=== PATIENT | male | born 1950 | race Hispanic/Latino ===

== ENCOUNTER 2017-10-01 07:15 | Inpatient (IN) | payer BC, MEDICARE ==
--- NOTE | 2017-10-01 07:27 | ED PDOC ---
Arrival/HPI - General Chief Complaint: Shortness Of Breath Time Seen by Provider: 10/01/17 07:15 - History of Present Illness Narrative History of Present Illness (Text): 67 y/o M c PMHx ICD, diagnosed with DVT yesterday and started on warfarin p/w shortness of breath since this morning. States felt very short of breath walking up his stairs, called EMS. Patient denies fever, cough, chest pain , nausea, vomiting. Reports 40 pack year smoking history but no history of COPD or asthma. Reports daily drinker, denies ever getting withdrawal symptoms. PMD Elijah Family/Social History Family/Social History: No Known Family HX Allergies/Home Meds Allergies/Adverse Reactions: Allergies aspirin Allergy (Verified 10/01/17 07:20) PAIN ciprofloxacin [From Cipro] Allergy (Verified 10/01/17 07:20) RASH levofloxacin [From Levaquin] Allergy (Verified 10/01/17 07:20) RASH Penicillins Allergy (Verified 10/01/17 07:20) RASH Home Medications: Home Meds Medication Instructions Recorded Confirmed Carvedilol [Coreg] 6.25 mg PO BID 10/01/17 10/01/17 Gabapentin [Neurontin] 100 mg PO TID 10/01/17 10/01/17 Isosorbide Dinitrate [Isordil] 60 mg PO DAILY 10/01/17 10/01/17 amLODIPine [Norvasc] 10 mg PO DAILY 10/01/17 10/01/17 Review of Systems - Physician Review All systems were reviewed & negative as marked: Yes - Review of Systems Constitutional: absent: Fevers Cardiovascular: absent: Chest Pain Physical Exam - Physical Exam Narrative Physical Exam (Text): Gen: NAD Head: NC/AT Eyes: PERRL ENT: MMM Neck: No midline tenderness Chest: ICD on L CV: Tachycardic Lungs: CTA b/l Abd: Soft, nontender Extremities: L leg swelling Skin: No rash Neuro: Awake, alert, no focal deficit Vital Signs Temp Pulse Resp BP Pulse Ox 10/01/17 10:32 112 H 22 110/68 93 L 10/01/17 10:02 112 H 120/87 10/01/17 09:50 98 F 112 H 16 120/87 93 L 10/01/17 07:40 98.4 F 114 H 18 123/92 H 96 11/16/17 07:36 18 96 10/01/17 07:26 98.4 F 114 H 16 123/92 H 96 Medical Decision Making ED Course and Treatment: EKG Sinus tachycardia, 120 bpm, right bundle morphology, no ST elevations Impression: 67 y/o M with recently diagnosed DVT now with shortness of breath and clear lung sounds. Plan: CTA to rule out PE CTA IMPRESSION: Extensive pulmonary emboli right greater than left with enlargement of the right ventricle indicating right ventricular strain. Heparin bolus and drip initiated. Dr. Nava accepts patient to his service. ICU accepts patient. Dr. David Castorena consulted, will take patient for intravascular tPA. Dr. Johnson and Dr. Hong consulted. Patient persistently tachycardic, blood pressure stable. - Lab Interpretations Lab Results: 10/01/17 07:49 10/01/17 07:49 Lab Results 10/01/17 07:49: Sodium 132, Potassium 3.0 L, Chloride 97 L, Carbon Dioxide 24, Anion Gap 14, BUN 7, Creatinine 0.7 L, Est GFR ( Amer) > 60, Est GFR (Non -Af Amer) > 60, Random Glucose 93, Calcium 8.8, Total Bilirubin 0.7, AST 96 H, ALT 35, Alkaline Phosphatase 98, Total Creatine Kinase 50, Troponin I 0.03, NT- Pro-B Natriuret Pep 498 H, Total Protein 5.7 L, Albumin 2.8 L, Globulin 2.9, Albumin/Globulin Ratio 1.0 L 10/01/17 07:49: PT 10.3, INR 0.94, APTT 29.3 10/01/17 07:49: WBC 4.8, RBC 3.36 L, Hgb 12.1 L, Hct 34.7 L, MCV 103.3, MCH 36.0 H, MCHC 34.9, RDW 14.9 H, Plt Count 98 L, MPV 9.7, Gran % 81.2 H, Lymph % ( Auto) 12.2 L, [place] % (Auto) 5.6, Eos % (Auto) 0.8 L, Baso % (Auto) 0.2, Gran # 3.91, Lymph # 0.6 L, [place] # 0.3, Eos # 0.0, Baso # 0.01 - RAD Interpretation Narrative RAD Interpretations (Text): 10/01/17 10:17 PROCEDURE: CT Chest with contrast (Pulmonary Angiogram) HISTORY: DVT, dyspnea COMPARISON: None available. TECHNIQUE: Axial computed tomography images were obtained of the chest in the pulmonary arterial phase of enhancement. Coronal and sagittal reformatted images were created and reviewed. Intravenous contrast dose: 100 cc of Omni 350 Radiation dose: Total exam DLP = 483 mGy-cm. This CT exam was performed using one or more of the following dose reduction techniques: Automated exposure control, adjustment of the mA and/or kV according to patient size, and/or use of iterative reconstruction technique. FINDINGS: PULMONARY ARTERIES: Large pulmonary emboli are seen in the right main pulmonary artery and proximal branches. . Moderate size emboli are also seen in the proximal branches of the left pulmonary artery. There is evidence of right ventricular strain. The maximum luminal diameter of the right ventricle as seen on axial image 210 series 3 is 53 mm. The maximum left ventricular diameter on image 192 is 23 mm. This gives a ratio of 2.3. This is a predictor of increased mortality. These findings were discussed with Dr. Robledo at 9 a.m. AORTA: No acute findings. No thoracic aortic aneurysm. LUNGS: There is a focal area of atelectasis or consolidation in the right middle lobe adjacent to the heart. PLEURAL SPACES: Unremarkable. No effusion or pneuomothorax. HEART: Unremarkable. No cardiomegaly. No significant pericardial effusion. LYMPH NODES: No lymphadenopathy. BONES, CHEST WALL: Unremarkable. No fracture or destructive lesion OTHER FINDINGS: Unremarkable. IMPRESSION: Extensive pulmonary emboli right greater than left with enlargement of the right ventricle indicating right ventricular strain. Radiology Orders: 10/01/17 07:27 ANGIO CHEST PE PROTOCOL [CT] Stat Catering Assistant: ED Physician, Radiologist - Medication Orders Current Medication Orders: Albuterol/Ipratropium (Duoneb 3 Mg/0.5 Mg (3 Ml) Ud) 3 ml IH Q2H PRN PRN Reason: Shortness of Breath Albuterol/Ipratropium (Duoneb 3 Mg/0.5 Mg (3 Ml) Ud) 3 ml IH Q4H [facility] Stop: 10/01/17 17:31 Last Admin: 10/01/17 10:01 Dose: 3 ml Amlodipine Besylate (Norvasc) 10 mg PO DAILY [facility] Last Admin: 10/01/17 10:02 Dose: 10 mg MAR Blood Pressure Document 10/01/17 10:02 MS (Rec: 10/01/17 10:02 [id number]) Blood Pressure Blood Pressure (100/60-150/90) 120/87 Carvedilol (Coreg) 6.25 mg PO BID [facility] Last Admin: 10/01/17 10:02 Dose: 6.25 mg MAR Pulse and Blood Pressure Document 10/01/17 10:02 MS (Rec: 10/01/17 10:02 MS [id number]) Pulse Pulse Rate (60-90) 112 Blood Pressure Blood Pressure (100/60-150/90) 120/87 Heparin Sodium/Sodium Chloride (Heparin 89180 Units/250ml 1/2 Normal Saline) 25 ,000 units in 250 mls @ 13.896 mls/hr IV .Q18H PRN; Protocol; 18 UNITS/KG/HR PRN Reason: ADJUST RATE PER PROTOCOL Last Admin: 10/01/17 09:44 Dose: 18 units/kg/hr, 13.896 mls/hr eMAR Start Stop Document 10/01/17 09:44 MS (Rec: 10/01/17 09:45 MS [id number]) Intravenous Solution Start Date 10/01/17 Start Time 09:45 MAR aPTT Document 10/01/17 09:44 MS (Rec: 10/01/17 09:45 [id number]) aPTT aPTT (secs) 29.3 Titration Intervention Document 10/01/17 09:44 MS (Rec: 10/01/17 09:45 [id number]) Titration Intake Waste Amount 0 Container Volume 250 Titration Dosing Titration Dose 18 IV Rate 13.896 Intake/Decrease Started Isosorbide Dinitrate (Isordil) 60 mg PO DAILY [facility] Last Admin: 10/01/17 10:22 Dose: Pantoprazole Sodium (Protonix Ec Tab) 40 mg PO 0600 JIMMY Potassium Chloride (K-Dur 20 Meq Er Tab) 20 meq PO ONCE ONE Stop: 10/01/17 13:01 Warfarin Sodium (Coumadin) 5 mg PO 1800 JIMMY Discontinued Medications Heparin Sodium (Porcine) (Heparin) 6,200 units 80 units/kg (6200 units) IV ONCE ONE PRN Reason: Protocol Stop: 10/01/17 09:16 Last Admin: 10/01/17 09:42 Dose: 6,200 units eMAR Start Stop Document 10/01/17 09:42 MS (Rec: 10/01/17 09:43 MS [id number]) Intravenous Solution Start Date 10/01/17 Start Time 09:43 MAR aPTT Document 10/01/17 09:42 MS (Rec: 10/01/17 09:43 MS [id number]) aPTT aPTT (secs) 29.3 Nicotine (Nicoderm Cq) 1 patch TD STAT STA Stop: 10/01/17 10:08 Last Admin: 10/01/17 10:21 Dose: 1 patch MAR Transdermal Patch Site Document 10/01/17 10:21 NURSE NAVIGATOR (Rec: 10/01/17 10:22 NURSE NAVIGATOR [facility] [id number] Transdermal Patch Site Transdermal Patch Site Left Outer Upper Arm Potassium Chloride (Klor-Con 10) 30 meq PO ONCE ONE Stop: 10/01/17 10:01 Last Admin: 10/01/17 10:21 Dose: 30 meq Warfarin Sodium (Coumadin) 5 mg PO 1800 JIMMY PRN Reason: Protocol Disposition/Present on Arrival - Present on Arrival Any Indicators Present on Arrival: No - Disposition Have Diagnosis and Disposition been Completed?: Yes Diagnosis: Pulmonary emboli Disposition: HOSPITALIZED Disposition Time: 08:57 Patient Plan: Admission, ICU Condition: CRITICAL
[2017-10-01 07:58] LABS: BASO # 0.01 K/mm3 (0.0-2.0); BASO % 0.2 % (0.0-3.0); EOS % 0.8 % (1.5-5.0); GRAN # 3.91 (1.4-6.5); GRAN % 81.2 % (50.0-68.0); HEMATOCRIT 34.7 % (42.0-52.0); LYMPH # 0.6 (1.2-3.4); LYMPH % 12.2 % (22.0-35.0); MEAN CELL VOLUME 103.3 fl (80.0-105.0); MEAN CORPUSCULAR HGB CONC 34.9 g/dl (31.0-37.0); MEAN PLATELET VOLUME 9.7 fl (7.0-11.0); MONO # 0.3 (0.1-0.6); MONO % 5.6 % (1.0-6.0); RED CELL DISTRIBUTION WIDTH 14.9 % (11.5-14.5); WHITE BLOOD COUNT 4.8 10^3/ul (4.5-11.0)
[2017-10-01 08:12] LABS: INR 0.94 (0.93-1.08); PARTIAL THROMBOPLASTIN TIME 29.3 Seconds (25.1-36.5)
[2017-10-01 08:13] LABS: ALKALINE PHOSPHATASE 98 U/L (38-126); ALT/SGPT 35 U/L (7-56); AST/SGOT 96 U/L (17-59); BILIRUBIN,TOTAL 0.7 mg/dL (0.2-1.3); BLOOD UREA NITROGEN 7 mg/dL (7-21); CALCIUM 8.8 mg/dL (8.4-10.5); CARBON DIOXIDE 24 mmol/L (21-33); CHLORIDE 97 mmol/L (98-107); GFR AFRICAN-AMERICAN > 60; GLUCOSE,RANDOM 93 mg/dL (70-110); SODIUM 132 mmol/L (132-148); TOTAL PROTEIN 5.7 g/dL (5.8-8.3)
[2017-10-01 08:25] LABS: TROPONIN I 0.03 ng/mL
[2017-10-01] MEDS ORDERED: Iohexol 350 MG/100 ML VIAL ONE (08:27)
[2017-10-01] MEDS ORDERED: Heparin25000 units/250ml 1/2NS 25,000 UNITS/250 ML BAG IV PRN (08:52)
[2017-10-01] MEDS ORDERED: Albuterol-Ipratrop 3 mg / 0.5 (3 ml) UD IH PRN (09:19)
--- NOTE | 2017-10-01 09:20 | CT ---
PROCEDURE: CT Chest with contrast (Pulmonary Angiogram) HISTORY: DVT, dyspnea COMPARISON: None available. TECHNIQUE: Axial computed tomography images were obtained of the chest in the pulmonary arterial phase of enhancement. Coronal and sagittal reformatted images were created and reviewed. Intravenous contrast dose: 100 cc of Omni 350 Radiation dose: Total exam DLP = 483 mGy-cm. This CT exam was performed using one or more of the following dose reduction techniques: Automated exposure control, adjustment of the mA and/or kV according to patient size, and/or use of iterative reconstruction technique. FINDINGS: PULMONARY ARTERIES: Large pulmonary emboli are seen in the right main pulmonary artery and proximal branches. . Moderate size emboli are also seen in the proximal branches of the left pulmonary artery. There is evidence of right ventricular strain. The maximum luminal diameter of the right ventricle as seen on axial image 210 series 3 is 53 mm. The maximum left ventricular diameter on image 192 is 23 mm. This gives a ratio of 2.3. This is a predictor of increased mortality. These findings were discussed with Dr. Robledo at 9 a.m. AORTA: No acute findings. No thoracic aortic aneurysm. LUNGS: There is a focal area of atelectasis or consolidation in the right middle lobe adjacent to the heart. PLEURAL SPACES: Unremarkable. No effusion or pneuomothorax. HEART: Unremarkable. No cardiomegaly. No significant pericardial effusion. LYMPH NODES: No lymphadenopathy. BONES, CHEST WALL: Unremarkable. No fracture or destructive lesion OTHER FINDINGS: Unremarkable. IMPRESSION: Extensive pulmonary emboli right greater than left with enlargement of the right ventricle indicating right ventricular strain.
[2017-10-01] MEDS ORDERED: Albuterol-Ipratrop 3 mg / 0.5 (3 ml) UD IH SCH (09:30)
[2017-10-01] MEDS: Heparin25000 units/250ml 1/2NS 25,000 UNITS/250 ML BAG IV PRN (09:44)
[2017-10-01] MEDS ORDERED: Potassium Chloride 10 mEq ER Tab PO ONE (10:00)
[2017-10-01] MEDS ORDERED: Lidocaine 2% Inj (20ml) ONE ×2 (11:28→12:23)
--- NOTE | 2017-10-01 11:28 | CP.PCM.CON ---
<Wellington Barnes - Last Filed: 10/01/17 11:29> History of Present Illness - History of Present Illness History of Present Illness: ICU consult note. Dr. Lara 67yo M with PMHx of heart failure s/p ICD placement, HTN here for evaluation of shortness of breath. Patient states that he has been having left lower extremity swelling and worsening pain over the past 1 week and went to see his PMD, Dr. Reina, yesterday. He was started on warfarin yesterday. He then became acute SOB this morning with light activity and the family called EMS to have him brought in to the ED for further evaluation. He reports generalized weakness, no chest pain. No F/C. No N/V/D. No Abd pain. No urinary complaints. Denies any hx of blood clots in the past. Does report 2hour drives each day to [facility] for work. PMD: Dr. Reina PMHx: Heart failure. HTN PSHx: AICD placement x2 Family Hx: Father: of CVA. Mother: of heart disease, Hx of HTN Social hx: current 1+ppd for the past 40+ years. Admits to daily ETOH use (2/3 beers per day), denies illicit drug use. Allergy: Aspirin, Ciprofloxacin, Levofloxacin, PCNs Review of Systems - Review of Systems All systems: reviewed and no additional remarkable complaints except - Constitutional Constitutional: Fatigue. absent: Chills, Fever - Cardiovascular Cardiovascular: Dyspnea, Leg Edema (left lower extermity). absent: Chest Pain - Respiratory Respiratory: Dyspnea, Dyspnea on Exertion - Gastrointestinal Gastrointestinal: absent: Abdominal Pain, Nausea, Vomiting - Genitourinary Genitourinary: absent: Dysuria - Musculoskeletal Musculoskeletal: absent: Back Pain - Neurological Neurological: absent: Dizziness, Numbness, Headaches - Endocrine Endocrine: Fatigue Past Patient History - Past Medical History & Family History Past Medical History?: Yes Past Family History: Reviewed and not pertinent - Past Social History Smoking Status: Heavy Smoker > 10 Cigarettes Daily - CARDIAC Hx Internal Defibrillator: Yes - PSYCHIATRIC Hx Substance Use: No Meds Allergies/Adverse Reactions: Allergies Allergy/AdvReac Type Severity Reaction Status Date / Time aspirin Allergy PAIN Verified 10/01/17 07:20 ciprofloxacin [From Cipro] Allergy RASH Verified 10/01/17 07:20 levofloxacin [From Levaquin] Allergy RASH Verified 10/01/17 07:20 Penicillins Allergy RASH Verified 10/01/17 07:20 - Medications Medications: Current Medications Albuterol/Ipratropium (Duoneb 3 Mg/0.5 Mg (3 Ml) Ud) 3 ml IH Q2H PRN PRN Reason: Shortness of Breath Albuterol/Ipratropium (Duoneb 3 Mg/0.5 Mg (3 Ml) Ud) 3 ml IH Q4H [facility] Stop: 10/01/17 17:31 Last Admin: 10/01/17 10:01 Dose: 3 ml Amlodipine Besylate (Norvasc) 10 mg PO DAILY [facility] Last Admin: 10/01/17 10:02 Dose: 10 mg Carvedilol (Coreg) 6.25 mg PO BID [facility] Last Admin: 10/01/17 10:02 Dose: 6.25 mg Heparin Sodium/Sodium Chloride (Heparin 97754 Units/250ml 1/2 Normal Saline) 25 ,000 units in 250 mls @ 13.896 mls/hr IV .Q18H PRN; Protocol; 18 UNITS/KG/HR PRN Reason: ADJUST RATE PER PROTOCOL Last Admin: 10/01/17 09:44 Dose: 18 units/kg/hr, 13.896 mls/hr Isosorbide Dinitrate (Isordil) 60 mg PO DAILY [facility] Last Admin: 10/01/17 10:22 Dose: Not Given Potassium Chloride (K-Dur 20 Meq Er Tab) 20 meq PO ONCE ONE Stop: 10/01/17 13:01 Warfarin Sodium (Coumadin) 5 mg PO 1800 [facility] Physical Exam - Constitutional Appears: No Acute Distress - Head Exam Head Exam: ATRAUMATIC, NORMAL INSPECTION, NORMOCEPHALIC - Eye Exam Eye Exam: EOMI, Normal appearance, PERRL - ENT Exam ENT Exam: Mucous Membranes Moist - Neck Exam Neck exam: Positive for: Full Rom, Normal Inspection - Respiratory Exam Respiratory Exam: Clear to Auscultation Bilateral. absent: Accessory Muscle Use , Decreased Breath Sounds, Rales, Rhonchi Additional comments: comfortable, no accessory muscle use. O2 Sat 94% on 2L NC. - Cardiovascular Exam Cardiovascular Exam: Tachycardia. absent: Diastolic murmur, JVD, Systolic Murmur - GI/Abdominal Exam GI & Abdominal Exam: Normal Bowel Sounds, Soft. absent: Distended, Firm, Guarding, Rebound, Rigid, Tenderness - Extremities Exam Additional comments: left lower extremity marked swelling noted. Tender to palpation of left calf. - Neurological Exam Neurological exam: Alert, Oriented x3 - Psychiatric Exam Psychiatric exam: Normal Affect, Normal Mood - Skin Skin Exam: Dry, Intact, Normal Color, Warm Results - Vital Signs Recent Vital Signs: Last Vital Signs Temp 98 F 10/01/17 09:50 Pulse 112 H 10/01/17 10:32 Resp 22 10/01/17 10:32 BP 110/68 10/01/17 10:32 Pulse Ox 93 L 10/01/17 10:32 - Labs Result Diagrams: 10/01/17 07:49 10/01/17 07:49 Assessment & Plan - Assessment and Plan (Free Text) Assessment: 67yo M with PMHx of heart failure s/p AICD, diagnosed with Left LE DVT on 09/30 , yesterday, and was started on Warfarin (took one dose last night). He came in with massive central Pulmonary embolus, started on heparin drip. Interventional Radiology to plan for emergent catheter directed thrombolysis today. 1. Central Pulmonary Embolism. Left Lower Extremity DVT. Consulted Interventional Radiology, Dr. Cal Castorena. Plan for catheter directed thrombolysis and IVC filter today. on Heparin ggt f/u ECHO to r/o RV strain currently HD stable. O2Sat 94% on 2L NC. Tachycardic. Comfortable, talking in full sentences. Hold Warfarin for now 2. Hx of heart failure s/p hx of AICD f/u ECHO Cardiology following, Dr. Hong, appreciate recs 3. Tobacco abuse current 1+ppd smoker Nicotine patch prn 4. PPx Protonix SCDs Discussed case with Dr. Bisi Barnes PGY1 <Stephan Lara - Last Filed: 10/01/17 13:09> Meds - Medications Medications: Current Medications Albuterol/Ipratropium (Duoneb 3 Mg/0.5 Mg (3 Ml) Ud) 3 ml IH Q2H PRN PRN Reason: Shortness of Breath Albuterol/Ipratropium (Duoneb 3 Mg/0.5 Mg (3 Ml) Ud) 3 ml IH Q4H JIMMY Stop: 10/01/17 17:31 Last Admin: 10/01/17 10:01 Dose: 3 ml Amlodipine Besylate (Norvasc) 10 mg PO DAILY [facility] Last Admin: 10/01/17 10:02 Dose: 10 mg Carvedilol (Coreg) 6.25 mg PO BID [facility] Last Admin: 10/01/17 10:02 Dose: 6.25 mg Heparin Sodium/Sodium Chloride (Heparin 93606 Units/250ml 1/2 Normal Saline) 25 ,000 units in 250 mls @ 13.896 mls/hr IV .Q18H PRN; Protocol; 18 UNITS/KG/HR PRN Reason: ADJUST RATE PER PROTOCOL Last Admin: 10/01/17 09:44 Dose: 18 units/kg/hr, 13.896 mls/hr Isosorbide Dinitrate (Isordil) 60 mg PO DAILY [facility] Last Admin: 10/01/17 10:22 Dose: Not Given Pantoprazole Sodium (Protonix Ec Tab) 40 mg PO 0600 [facility] Results - Vital Signs Recent Vital Signs: Last Vital Signs Temp 98 F 10/01/17 09:50 Pulse 112 H 10/01/17 10:32 Resp 22 10/01/17 10:32 BP 110/68 10/01/17 10:32 Pulse Ox 93 L 10/01/17 10:32 - Labs Result Diagrams: 10/01/17 07:49 10/01/17 07:49 Assessment & Plan - Assessment and Plan (Free Text) Assessment: Patient seen and examined, agree with note, with following additions/exceptions: Patient is 67yo male with PMhx of CHF s/p AICD, recently diagnosed with LE DVT placed on Coumadin yesterday, admitted with pulmonary embolism, b/l, with right heart strain on CT Chest. Currently awake, alert, NAD, comfortable, sat 96% on 2LNC, speaking full sentences. [facility] today with IR. Plan for A/C thereafter, obtain ECHO, check BNP/ Troponin. Critical care time 35 minutes.
[2017-10-01] MEDS ORDERED: Iodixanol 320 MG/ML 200 ML BOTTLE IV ONE (11:29)
[2017-10-01] MEDS ORDERED: Heparin 25,000units in D5W 25,000 UNITS/250 ML BAG IV ONE ×2 (11:29→12:24)
[2017-10-01] MEDS ORDERED: Iodixanol 320 mg/ml 150 ml Bottle IV ONE (11:29)
[2017-10-01] MEDS ORDERED: Nitroglycerin 50mg in D5W 50 MG/250 ML BOTTLE IV ONE (11:29)
[2017-10-01] MEDS ORDERED: Midazolam 2 MG/2 ML VIAL ONE (11:52)
[2017-10-01] MEDS ORDERED: Potassium Chloride 20 mEq ER Tab PO ONE (13:00)
[2017-10-01] MEDS: Oxycodone/Acetaminophen 5/325 mg Tab PO PRN ×2 (13:58→21:59)
[2017-10-01] MEDS ORDERED: Influenza Vaccine 60 mcg/0.5 mL SYR (4YR UP) IM ONE (15:35)
[2017-10-01] MEDS ORDERED: Pneumococcal 23-Valent Vaccine IM ONE (15:35)
[2017-10-01 15:36] VITALS: BMI 21.8
--- NOTE | 2017-10-01 17:37 | VASCULAR ---
PROCEDURE: 1. IVC gram 2. Retrievable IVC filter placement 3. Bilateral pulmonary artery angiograms with pressures. 4. Bilateral pulmonary artery EKOS catheter-directed thrombolysis CLINICAL HISTORY: Sub massive pulmonary embolus. Hypotension and tachycardia. Right ventricular dilatation. Needs thrombolysis. PHYSICIAN(S): David Castorena M.D. TECHNIQUE: The relative risks and indications of procedure explained to the patient's family and consent obtained. The patient was placed supine on the arteriogram table and both groins prepped and draped usual sterile fashion. Under direct ultrasound guidance, the common femoral veins were punctured bilaterally and short sheath placed. On the right, a 5 Portuguese flush catheter was advanced over the IVC bifurcation placed left iliac system. A PA DSA IVC gram was performed. The renal veins were carefully marked. A delivery sheath was placed just below the renal veins. A retrievable argon filter was deployed in the IVC just below renal veins. Guidewires were advanced through the filter. A 5 Portuguese flush catheter was advanced through the right heart placed in the right pulmonary artery. PA pressures were performed. A DSA right pulmonary arteriogram was performed. 0.035 support wire was placed in the lower lobe branch. A 5 Portuguese EKOS catheter with 12 cm infusion length was placed in the right pulmonary artery. From the left groin the flush catheter was advanced through heart and placed the left pulmonary artery. PA pressures were obtained. A DSA left pulmonary arteriogram was performed. Once again a support wire was placed in a left lower lobe pulmonary artery branch. A 5 Portuguese EKOS catheter with a 6 cm infusion length was placed in the left pulmonary artery. The infusion systems were secured. TPA was begun at 2 milligrams/hour. After 8 hours is will be decreased to 1 milligram/hour. Sub therapeutic heparin was given through the sheath. The patient was transferred to the ICU in stable condition. FINDINGS: The pulmonary artery pressures are mildly elevated (35/12 mm Hg) On the right, there is large thrombus burden involving upper and lower pulmonary artery centrally. On the left, the thrombus burden is less, primarily involving the lower lobes. The retrievable filter was placed in the infrarenal IVC at L2. The IVC and visualized iliac veins are normal without thrombus or obstruction IMPRESSION: 1. Large bilateral pulmonary emboli, greater on the right than the left. 2. Pulmonary pressure is 35/12. 3. Successful placement of bilateral pulmonary artery EKOS thrombolysis catheters. TPA was initiated 2 milligrams/hour an will D decrease to 1 milligram/hour after 8 hours 4. Successful placement of retrievable IVC filter in the infrarenal IVC. 5. Normal IVC gram.
--- NOTE | 2017-10-01 18:52 | HP ---
HISTORY OF PRESENT ILLNESS: The patient is a 67-year-old man with a past medical history of cardiomyopathy, status post AICD and newly diagnosed left lower extremity DVT, who presented to [facility] for evaluation of a one-day history of dyspnea with exertion. The patient was seen in his PMD's office 3 days ago with complaint of left lower extremity edema. He was sent for a venous ultrasound to rule out a DVT. The ultrasound had confirmed a left lower extremity DVT to the popliteal vein and the patient was started on Coumadin for anticoagulation. The following morning, the patient reported he was walking up a flight of stairs, when he developed severe dyspnea and lightheadedness. His had called EMS and upon evaluation, the patient was noted to be tachycardiac with a pulse in the 120s, tachypneic with a respiratory rate of 24 and hypoxic with an oxygen saturation of 78% on room air. The patient was placed on supplement oxygen and brought to [facility] Emergency Department for further evaluation. Upon arrival to the ED, he was noted to be tachycardiac with a pulse of 114, but otherwise hemodynamically stable. Pulse oximetry revealed an oxygen saturation of 88% on room air, which improved to 96% on 2 L nasal cannula. The patient was sent for a stat CT of the chest, which confirmed bilateral pulmonary emboli with right greater than left. He was started on a heparin drip and subsequently admitted to telemetry [place] for continued management of acute pulmonary embolism. PAST MEDICAL HISTORY: As per HPI, also hypertension, hyperlipidemia, and ulcerative colitis. PAST SURGICAL HISTORY: As per HPI. MEDICATIONS: Isosorbide dinitrate 60 mg p.o. daily, gabapentin 100 mg p.o. t.i.d., carvedilol 6.25 mg p.o. b.i.d., amlodipine 10 mg p.o. daily and Coumadin 4 mg p.o. daily (started one-day prior to admission). ALLERGIES: ASPIRIN, QUINOLONES AND PENICILLIN. FAMILY HISTORY: No history of hypercoagulability or blood dyscrasias. SOCIAL HISTORY: The patient reports an active [id number] smoking history and social alcohol use. He denies illicit drug abuse. REVIEW OF SYSTEMS: Positive for left lower extremity edema and dyspnea. Negative for chest pain, palpitations, hemoptysis, near syncope or syncope. PHYSICAL EXAMINATION: VITAL SIGNS: Temperature 98.4, pulse 114, blood pressure 123/92, respiratory rate 18 and oxygen saturation 96% on 2 L nasal cannula. GENERAL: A thin, frail man in mild respiratory distress using accessory muscles of respirations. HEENT: PERRL. EOMI. No scleral icterus. No conjunctival pallor. NECK: No JVD. No bruits. LUNGS: Clear to auscultation. CARDIOVASCULAR: Tachycardic. Normal S1 and S2. AICD to left anterior chest wall. ABDOMEN: Normoactive bowel sounds. Soft, nontender and nondistended. EXTREMITIES: Left lower extremity with 1+ pitting edema to the knee. NEUROLOGIC: Awake, alert and oriented x3. No focal motor deficits. LABORATORY DATA: WBC 4.8 with 81% neutrophils, hemoglobin 12, hematocrit 35, platelets 98. Sodium 132, potassium 3, chloride 97, bicarbonate 24, BUN 7, creatinine 0.7, glucose 93. INR 0.94. IMAGING STUDIES: CT of the chest with IV contrast demonstrates extensive pulmonary emboli with right greater than left with enlargement of the right ventricular indicating RV strain. ASSESSMENT: The patient is a 67-year-old man with a past medical history of hypertension, hyperlipidemia, cardiomyopathy, status post automated implantable cardioverter defibrillator and extensive smoking history, who is recently diagnosed with a left lower extremity deep vein thrombosis, who presented with a one-day history of dyspnea and was found to have bilateral pulmonary emboli, who was subsequently admitted for anticoagulation and management of bilateral pulmonary emboli. PLAN: 1. Acute PE, bilateral etiology likely secondary to underlying provoked left lower extremity DVT. The patient has been started a heparin drip. We will continue with heparin drip and bridging with Coumadin. Dr. Johnson of Pulmonary and Critical Care Medicine has been consulted for further evaluation and recommendations. We will continue to monitor PTT as per heparin protocol. Continue monitor respiratory status closely and continue with supplemental oxygen and bronchodilators as needed. 2. Cardiomyopathy, status post AICD. We will resume carvedilol 6.25 mg p.o. b.i.d., isosorbide dinitrate [address] Hong of Cardiology has been consulted for further evaluation and recommendations, particularly in the setting of RV strain given underlying pulmonary embolism. 3. Hypertension. Blood pressure controlled. Continue with current medications. 4. Ulcerative colitis. 5. Prophylaxis. GI prophylaxis is not indicated as patient is eating. DVT prophylaxis is not indicated as the patient is on therapeutic heparin. CODE STATUS: FULL CODE. Jeevan Nava MD
[2017-10-01 20:45] LABS: HEMATOCRIT 28.6 % (42.0-52.0); MEAN CELL VOLUME 104.8 fl (80.0-105.0); MEAN CORPUSCULAR HEMOGLOBIN 35.9 pg (25.0-35.0); MEAN CORPUSCULAR HGB CONC 34.3 g/dl (31.0-37.0); MEAN PLATELET VOLUME 9.5 fl (7.0-11.0); RED CELL DISTRIBUTION WIDTH 15.4 % (11.5-14.5); WHITE BLOOD COUNT 3.1 10^3/ul (4.5-11.0)
--- NOTE | 2017-10-01 21:11 | CON ---
DATE: 10/01/2017 REFERRING PHYSICIAN: Jeevan Nava MD REASON FOR CONSULTATION: Pulmonary embolism. HISTORY OF PRESENT ILLNESS: The patient is a 67-year-old male, with past medical history significant for chronic obstructive pulmonary disease, positive extensive smoking history, recently diagnosed with left deep venous thrombosis, coronary artery spasm, myocardial infarction in the past, status post AICD placement, who presents with increasing shortness of breath at rest, and dyspnea on exertion - starting this morning. There is no history of cough or sputum production. There is no history of chest pain, coughing up of blood, or chest pain - made worse with deep respirations. There is no history of temperatures, chills, or infectious exposure. There is no history of night sweats, weight loss, or appetite change prior to the above events. The patient does complain of some left calf discomfort. No history of syncope or diaphoresis. The patient has taken a long car ride in the past few days. No history of trauma. REVIEW OF SYSTEMS: No history of nausea, vomiting, or diarrhea. No acute urinary symptoms. No new neurologic complaints. Rest of the review of systems negative. ALLERGIES: ASPIRIN, CIPROFLOXACIN, LEVOFLOXACIN, AND PENICILLINS. SOCIAL HISTORY: Positive for extensive tobacco usage, also positive for alcohol abuse. FAMILY HISTORY: No inheritable diseases. MEDICATION: Home medications include Isordil, Neurontin, Coreg, and Norvasc. PHYSICAL EXAMINATION: GENERAL: The patient is not short of breath at rest - at the time of my examination. He is not using accessory muscles for breathing. VITAL SIGNS: Temperature is 98.4, pulse 114, respirations 18, blood pressure 123/92. Oxygen saturation on nasal cannula is 96%. HEENT: Normocephalic, atraumatic. No JVD. LUNGS: Clear bilaterally. CARDIOVASCULAR: Positive S1, S2. No S3 gallop. EXTREMITIES: The left lower extremity is swollen and increased in size - compared to the right lower extremity. There is mild edema noted of the left lower extremity. The left calf is mildly tender to palpation. There is no cyanosis or clubbing. The right calf is nontender to palpation. GI: Abdomen is soft, nontender, and nondistended. Bowel sounds are positive. SKIN: No acute rash. NEUROLOGIC: Exam is limited at the present time. PERTINENT LABORATORY DATA: CT scan of the chest was done this morning as an angiogram protocol. I also discussed the scan with Dr. Nguyen (Radiology) at length. There are extensive pulmonary emboli noted - right greater than left. There is enlargement of the right ventricle indicating right ventricular strain. There is also a small focal area of atelectasis or consolidation in the right middle lobe - of unknown significance. CBC: White count 4.8, hemoglobin 12.1, hematocrit 34.7, platelets of 98,000. Complete metabolic profile: Potassium 3.0, chloride 97, AST 96. B-type natriuretic peptide 498. Total protein 5.7, albumin 2.8. Rest of the metabolic profile is within normal limits. IMPRESSION: 1. Acute bilateral pulmonary emboli. 2. Left deep venous thrombosis. 3. Chronic obstructive pulmonary disease. 4. Mild anemia. 5. Status post AICD placement.. PLAN: I did discuss the case with the patient, , and daughter at length. I have also discussed the case with Dr. Robledo (emergency room) at length. The patient presents to [facility] with increasing shortness of breath at rest and dyspnea on exertion - starting this morning. As above, he was also recently diagnosed with a left deep venous thrombosis. I did review the CT scan of the chest, and discussed the scan with Dr. Nguyen (Radiology) at length. As above, the CT scan reveals bilateral pulmonary emboli (right worse than left), with enlargement of the right ventricle indicating right ventricular strain. The patient has been started on the heparin protocol. He is also on Coumadin therapy (started last night). Dr. Hong (Cardiology) has been called on the case. Dr. David Castorena (Interventional Radiology) has also been called on the case - for possible intervention. The patient's clinical status is very guarded at this point in time. He is hemodynamically stable. The ICU team has been called for evaluation. I will discuss the above with Dr. Nava in the next few moments. I will also discuss the above with the entire ICU team in the next few moments. Thank you very much for this pulmonary consultation. Christ Johnson MD MTDD
--- NOTE | 2017-10-01 21:16 | CON ---
DATE: INDICATIONS: Edema, shortness of breath, acute pulmonary embolus. HISTORY OF PRESENT ILLNESS: This is a 67-year-old male known to me, who developed swollen legs in the last week or so. He was started on diuretic and warfarin, which he started yesterday. Early this morning, he became acutely short of breath. He was taken to the emergency room. Subsequently, a CT angiogram shows bilateral pulmonary emboli. He is not short of breath at rest at the moment. His legs are swollen. There is no chest pain, orthopnea, PND, syncope, presyncope, lightheadedness, dizziness, vertigo, palpitation, fever, chills, cough, sputum production, hemoptysis, abdominal pain, nausea, vomiting, diarrhea, constipation, or melena. PAST MEDICAL HISTORY: Notable for heavy cigarette smoking for many years. About 15 years ago, he had an episode of sudden cardiac with ventricular tachycardia, thought to be due to coronary spasm related to cigarette smoking at that time. A defibrillator was implanted. Cardiac catheterization at that time showed normal coronary arteries. Over the years, his cardiac status has been stable and his ICD has been been followed regularly. A battery/generator change is planned for October. He has a chronic diarrheal illness, initially thought to be ulcerative colitis and treated with mercaptopurine. Recently a new design lead evaluated him a felt that UC was not the correct diagnosis. He removed several colonic polyps and changed his therapy dicontinuing mercaptopurine, He also has hypertension, but no diabetes, stroke, TIA or gout. He has chronic thrombocytopenia possibly related to mercaptopurine. He is under the care of Dr. Crain for hematological issues. He is under the care of Dr.Michael Pepper for GI issues. MEDICATIONS AT THE TIME OF ADMISSION: Include Coreg, amlodipine, isosorbide and gabapentin. . ALLERGIES: HE NOTES ALLERGIES TO SEVERAL MEDICATIONS INCLUDING ASPIRIN, CIPRO, LEVAQUIN AND PENICILLINS. SOCIAL HISTORY: He lives at home with his , he works full-time in a stressful job. He is ambulatory. He smokes at least a pack of cigarettes per day. He drinks alcohol on a daily basis. FAMILY HISTORY: Noncontributory. REVIEW OF SYSTEMS: A 10-point review of systems is otherwise unremarkable except as noted above. PHYSICAL EXAMINATION: GENERAL: He is a well-developed ill appearing male in acute distress, sitting on a stretcher in the emergency room. VITAL SIGNS: He is afebrile, pulse 100-114, sinus tachycardia, blood pressure 123/92, respirations 18 and O2 saturation 96% on room air. HEENT: Reveals no neck vein distention, thyromegaly, or carotid bruits. Mucous membranes are moist. Conjunctivae are pink. NECK: Supple. LUNGS: Lung loco, scattered rhonchi. HEART: Reveals normal first and second heart sounds. No murmur, gallop, rub, or click. PMI not palpable. ABDOMEN: Soft. Bowel sounds present. No mass, organomegaly, tenderness, rebound, guarding, CVA tenderness. No palpable abdominal aortic aneurysm. EXTREMITIES: Reveal no cyanosis, clubbing. There is bilateral lower extremity edema to the shins. He has diminished foot pulses. NEUROLOGIC: Awake, alert and oriented. PSYCHIATRIC: Normal as to mood and affect. SKIN: Warm and dry. No rash or cellulitis. ASSESSMENT: Sunday Corral is a 67-year-old smoker with recent swollen legs, deep venous thrombosis and acute submassive pulmonary embolus, admitted to [facility], currently in the emergency room, going to the intensive care unit. He has been seen by Dr. Johnson. I discussed the case with Dr. Johnson and Dr. Robledo in the emergency room. We will call Dr. David Castorena, interventional radiologist to consider IVC placement and thrombolysis. He will have an echocardiogram done shortly. He is being started on heparin. He will need a nicotine patch. We will monitor inputs and outputs. We will check stool for occult blood. He has been again admonished to stop smoking. He will have to limit his alcohol intake in the future. He should have Hematology on board given his chronic thrombocytopenia and the current platelet count of 98,000. His white count is normal, hemoglobin 12.1 and hematocrit 34.7. PT INR and PTT normal. Electrolytes notable for potassium of 3.0, probably related to chronic diarrhea; creatinine is 0.7; troponin 0.03; CK is 50. I will check his ECG when it is available. I will replace potassium. I have discussed the case with his and daughter at the bedside. I will follow along with you. I will make additional recommendations based on his clinical course. Ranulfo Hong MD PILAR
--- NOTE | 2017-10-01 22:05 | CARD ---
APPROVED REPORT EKG Measurement Heart [id number] <Conclusion> Sinus tachycardia with premature atrial complexes with aberrant conduction Possible Left atrial enlargement Left axis deviation Right bundle branch block Abnormal ECG
[2017-10-02] MEDS ORDERED: Pantoprazole 40 mg EC Tab PO SCH (06:00)
[2017-10-02 07:13] LABS: BASO # 0.01 K/mm3 (0.0-2.0); BASO % 0.3 % (0.0-3.0); EOS % 0.9 % (1.5-5.0); GRAN # 2.58 (1.4-6.5); GRAN % 75.4 % (50.0-68.0); HEMATOCRIT 29.9 % (42.0-52.0); LYMPH # 0.5 (1.2-3.4); MEAN CELL VOLUME 106.8 fl (80.0-105.0); MEAN CORPUSCULAR HEMOGLOBIN 36.1 pg (25.0-35.0); MEAN CORPUSCULAR HGB CONC 33.8 g/dl (31.0-37.0); MEAN PLATELET VOLUME 10.1 fl (7.0-11.0); MONO # 0.3 (0.1-0.6); MONO % 9.4 % (1.0-6.0); RED CELL DISTRIBUTION WIDTH 15.7 % (11.5-14.5); WHITE BLOOD COUNT 3.4 10^3/ul (4.5-11.0)
[2017-10-02 07:30] LABS: PARTIAL THROMBOPLASTIN TIME 36.3 Seconds (25.1-36.5)
[2017-10-02 07:44] LABS: ALB/GLOB RATIO 0.9 (1.1-1.8); ALKALINE PHOSPHATASE 71 U/L (38-126); ALT/SGPT 42 U/L (7-56); AST/SGOT 53 U/L (17-59); BILIRUBIN,TOTAL 0.8 mg/dL (0.2-1.3); BLOOD UREA NITROGEN 11 mg/dL (7-21); CALCIUM 7.9 mg/dL (8.4-10.5); CARBON DIOXIDE 30 mmol/L (21-33); CHLORIDE 101 mmol/L (98-107); GFR AFRICAN-AMERICAN > 60; GLUCOSE,RANDOM 81 mg/dL (70-110); MAGNESIUM 1.4 mg/dL (1.7-2.2); POTASSIUM 3.9 mmol/L (3.6-5.0); SODIUM 132 mmol/L (132-148); TOTAL PROTEIN 4.8 g/dL (5.8-8.3)
--- NOTE | 2017-10-02 07:58 | CP.PCM.PN ---
Subjective - Date & Time of Evaluation Date of Evaluation: 10/02/17 Time of Evaluation: 07:00 - Subjective Subjective: Stable in CCU s/p IVC filter and PA thrombolysis With Ekos catheters. He feels OK w/o CP or SOB. V/S noted. RSR PE: Lungs: clear Cor: S1S2 Abd.: soft Ext.: + edema Neuro: alert I/O= 1882/400 Labs, ECG pending ECHO pending (not done yesterday because he was in the [employer] and has Ekos catheters) Objective - Vital Signs/Intake and Output Vital Signs (last 24 hours): Temp Pulse Resp BP Pulse Ox 97.4 F L 72 16 118/58 L 98 10/02/17 04:00 10/02/17 06:00 10/02/17 03:30 10/02/17 03:00 10/02/17 03:33 Intake and Output: 10/02/17 10/02/17 06:59 18:59 Intake Total 1882 Output Total 400 Balance 1482 - Medications Medications: Current Medications Acetaminophen (Tylenol 325mg Tab) 650 mg PO Q4H PRN PRN Reason: Pain, Mild (1-3) Albuterol/Ipratropium (Duoneb 3 Mg/0.5 Mg (3 Ml) Ud) 3 ml IH Q2H PRN PRN Reason: Shortness of Breath Amlodipine Besylate (Norvasc) 10 mg PO DAILY [facility] Last Admin: 10/01/17 10:02 Dose: 10 mg Carvedilol (Coreg) 6.25 mg PO BID [facility] Last Admin: 10/01/17 17:16 Dose: 6.25 mg Heparin Sodium/Sodium Chloride (Heparin 73670 Units/250ml 1/2 Normal Saline) 25 ,000 units in 250 mls @ 13.896 mls/hr IV .Q18H PRN; Protocol; 18 UNITS/KG/HR PRN Reason: ADJUST RATE PER PROTOCOL Last Admin: 10/01/17 09:44 Dose: 18 units/kg/hr, 13.896 mls/hr Alteplase, Recombinant 10 mg/ (Sodium Chloride) 500 mls @ 25 mls/hr IV .Q20H [facility] Last Admin: 10/02/17 02:56 Dose: 25 mls/hr Isosorbide Dinitrate (Isordil) 60 mg PO DAILY [facility] Last Admin: 10/01/17 10:22 Dose: Not Given Lorazepam (Ativan) 2 mg IVP Q6H PRN PRN Reason: Anxiety Last Admin: 10/01/17 23:18 Dose: 2 mg Oxycodone/Acetaminophen (Percocet 5/325 Mg Tab) 1 tab PO Q6H PRN PRN Reason: Pain, moderate (4-7) Stop: 10/04/17 13:31 Last Admin: 10/01/17 21:59 Dose: 1 tab Pantoprazole Sodium (Protonix Inj) 40 mg IVP DAILY [facility] Last Admin: 10/01/17 15:50 Dose: Not Given - Labs Labs: 10/02/17 06:30 10/02/17 06:30 PT 11.0 SECONDS (9.4-12.5) 10/02/17 06:30 INR 1.00 (0.93-1.08) 10/02/17 06:30 APTT 36.3 Seconds (25.1-36.5) 10/02/17 06:30 Assessment and Plan - Assessment and Plan (Free Text) Assessment: SOB/Edema Acute DVT LEs Submassive PEs, s/p IVC filter and intra-arterial TPA infusion via Ekos catheters. Hypokalemia S/P SCD due to cor. vasospasm, remote ICD Chronic Diarrhea Colonic Polyps Thrombocytopenia, probably related to chronic mercaptopurine tx for UC Plan: Await AM labs, ECG. As per Pulm., Interventional Radiology, Dr. Nava Echo, later, after Ekos catheters d/c'd. Nicotine patch as required Start oral A/C after TPA d/c'd
[2017-10-02] MEDS ORDERED: Magnesium Sulfate 2 GM in Dextrose 5% In Water 100 ML IV ONE (08:04)
--- NOTE | 2017-10-02 08:10 | PN ---
DATE:(700am--750am) PULMONARY PROGRESS NOTE SUBJECTIVE: The patient appears very comfortable this morning. He is not short of breath at rest. PHYSICAL EXAMINATION: VITAL SIGNS: Temperature is 97.4, pulse is 72, respirations 16, blood pressure 118/58. Oxygen saturation on nasal cannula is 98%. HEENT: Normocephalic, atraumatic. NECK: No JVD. CARDIOVASCULAR: Positive S1, S2. No S3 gallop. LUNGS: Clear bilaterally. EXTREMITIES: The left lower extremity is slightly decreased in size. There is somewhat less edema of the left lower extremity. The left calf is less tender to palpation. There is no cyanosis or clubbing. The right calf is nontender to palpation. GI: Abdomen is soft, nontender and nondistended. Bowel sounds are positive. SKIN: No acute rash. NEUROLOGIC: Limited at the present time. IMPRESSION: 1. Acute bilateral pulmonary emboli. 2. Left deep venous thrombosis. 3. Chronic obstructive pulmonary disease. 4. Mild anemia. 5. Status post AICD placement. PLAN: The patient appears much more comfortable this morning. He is not short of breath at rest. He states to feeling much, much better overall. The patient is status post catheter directed thrombolysis. The patient is also status post inferior vena cava filter placement. Input by Dr. Castorena (Interventional Radiology) is noted. The patient remains on a heparin drip. On physical exam, the patient's lungs are clear. Oxygen saturation on nasal cannula is now 98%. He remains hemodynamically stable. Repeat a.m. labs are pending. Clinical status of the patient is significantly improved-compared to yesterday. I will discuss the above with the entire ICU team in the next few moments. I will also discuss the above with the attending physician later this morning. Christ Johnson MD PILAR
[2017-10-02] MEDS ORDERED: Magnesium Sulfate 2 GM in Sodium Chloride 0.9% 100 ML IVPB ONE (08:30)
[2017-10-02] MEDS ORDERED: Morphine 4 mg/ml ISec IVP STA (09:13)
[2017-10-02] MEDS: Heparin25000 units/250ml 1/2NS 25,000 UNITS/250 ML BAG IV PRN (09:29)
[2017-10-02] MEDS: Magnesium Oxide 400 mg Tab UD PO SCH ×2 (09:46→17:16)
--- NOTE | 2017-10-02 10:42 | CP.CCUPN ---
<CameronWellington felipe - Last Filed: 10/02/17 10:39> CCU Subjective - Physician Review Events Since Last Encounter (Free Text): 10/02/17 10:[address] Lara Pt seen and examined at bedside. Family at bedside. No acute events overnight. Patient reports improvement in SOB this morning. Denies F/C. No acute distress. No new complaints. CCU Objective - Vital Signs / Intake & Output Vital Signs (Last 4 hours): Vital Signs Pulse BP 10/02/17 10:00 85 10/02/17 09:46 135/78 10/02/17 09:45 88 Intake and Output (Last 8hrs): Intake & Output 10/01/17 10/02/17 10/02/17 22:59 06:59 14:59 Intake Total 2132 Output Total 400 Balance 1732 Weight 247 lb 14.4 oz Intake: IV 1882 Left Femoral 816 Right Femoral 816 Oral 250 Output: Urine 400 Urethral (Conrad) 400 - Physical Exam Head: Positive for: Atraumatic, Normocephalic Pupils: Positive for: PERRL Extroacular Muscles: Positive for: EOMI Conjunctiva: Positive for: Normal Mouth: Positive for: Moist Mucous Membranes Neck: Negative for: JVD Respiratory/Chest: Positive for: Good Air Exchange. Negative for: Respiratory Distress, Wheezes, Decreased Breath Sounds Cardiovascular: Positive for: Regular Rate and Rhythm. Negative for: Murmurs, Tachycardic, Rub, Gallop Abdomen: Negative for: Tenderness, Distention, Rebound, Guarding Upper Extremity: Positive for: Normal Inspection Lower Extremity: Positive for: Other (Bilateral inguinal catheters removed this morning, good hemostasis noted. Dressing clean, dry and intact.) Neurological: Positive for: GCS=15 Skin: Positive for: Warm, Dry, Normal Color Psychiatric: Positive for: Alert, Oriented x 3 - Medications Active Medications: Active Medications Generic Name Dose Route Start Last Admin Trade Name Freq PRN Reason Stop Dose Admin Acetaminophen 650 mg 10/01/17 13:30 Tylenol 325mg Tab PO Q4H PRN Pain, Mild (1-3) Albuterol/Ipratropium 3 ml 10/01/17 09:19 Duoneb 3 Mg/0.5 Mg (3 Ml) Ud IH Q2H PRN Shortness of Breath Amlodipine Besylate 10 mg 10/01/17 10:00 10/02/17 09:46 Norvasc PO 10 mg DAILY JIMMY Administration Carvedilol 6.25 mg 10/01/17 10:00 10/02/17 09:45 Coreg PO 6.25 mg BID JIMMY Administration Heparin Sodium/Sodium Chloride 25,000 units in 250 mls @ 13.896 mls/hr 09:15 10/02/17 09:29 Heparin 53168 Units/250ml 1/2 Normal Saline IV 18 units/kg/hr .Q18H PRN 13.896 mls/hr ADJUST RATE PER PROTOCOL Administration Protocol 18 UNITS/KG/HR Alteplase, Recombinant 10 mg/ 500 mls @ 25 mls/hr 10/02/17 00:45 10/02/17 02: 56 Sodium Chloride IV 25 mls/hr .Q20H JIMMY Administration Isosorbide Dinitrate 60 mg 10/01/17 10:00 10/02/17 09:46 Isordil PO 60 mg DAILY JIMMY Administration Lorazepam 2 mg 10/01/17 13:30 10/01/17 23:18 Ativan IVP 2 mg Q6H PRN Administration Anxiety Magnesium Oxide 400 mg 10/02/17 10:00 10/02/17 09:46 Mag-Ox PO 400 mg BID JIMMY Administration Oxycodone/Acetaminophen 1 tab 10/01/17 13:30 10/01/17 21:59 Percocet 5/325 Mg Tab PO 10/04/17 13:31 1 tab Q6H PRN Administration Pain, moderate (4-7) Pantoprazole Sodium 40 mg 10/01/17 13:45 10/02/17 09:46 Protonix Inj IVP 40 mg DAILY JIMMY Administration - Patient Studies Lab Studies: Lab Studies 10/02/17 10/02/17 10/02/17 Range/Units 06:30 06:30 06:30 WBC 3.4 L (4.5-11.0) 10^3/ul RBC 2.80 L (3.5-6.1) 10^6/uL Hgb 10.1 L (14.0-18.0) g/dL Hct 29.9 L (42.0-52.0) % MCV 106.8 H (80.0-105.0) fl MCH 36.1 H (25.0-35.0) pg MCHC 33.8 (31.0-37.0) g/dl RDW 15.7 H (11.5-14.5) % Plt Count 92 L (120.0-450.0) 10^3/uL MPV 10.1 (7.0-11.0) fl Gran % 75.4 H (50.0-68.0) % Lymph % (Auto) 14.0 L (22.0-35.0) % Owsley % (Auto) 9.4 H (1.0-6.0) % Eos % (Auto) 0.9 L (1.5-5.0) % Baso % (Auto) 0.3 (0.0-3.0) % Gran # 2.58 (1.4-6.5) Lymph # 0.5 L (1.2-3.4) Owsley # 0.3 (0.1-0.6) Eos # 0.0 (0.0-0.7) Baso # 0.01 (0.0-2.0) K/mm3 PT 11.0 (9.4-12.5) SECONDS INR 1.00 (0.93-1.08) APTT 36.3 (25.1-36.5) Seconds Sodium 132 (132-148) mmol/L Potassium 3.9 (3.6-5.0) mmol/L Chloride 101 (98-107) mmol/L Carbon Dioxide 30 (21-33) mmol/L Anion Gap 4 L (10-20) BUN 11 (7-21) mg/dL Creatinine 0.7 L (0.8-1.5) mg/dl Est GFR ( Amer) > 60 Est GFR (Non-Af Amer) > 60 Random Glucose 81 (70-110) mg/dL Calcium 7.9 L (8.4-10.5) mg/dL Magnesium 1.4 L (1.7-2.2) mg/dL Total Bilirubin 0.8 (0.2-1.3) mg/dL AST 53 (17-59) U/L ALT 42 (7-56) U/L Alkaline Phosphatase 71 (38-126) U/L Total Protein 4.8 L (5.8-8.3) g/dL Albumin 2.2 L (3.0-4.8) g/dL Globulin 2.5 gm/dL Albumin/Globulin Ratio 0.9 L (1.1-1.8) 10/01/17 10/01/17 Range/Units 20:37 17:53 WBC 3.1 L D (4.5-11.0) 10^3/ul RBC 2.73 L (3.5-6.1) 10^6/uL Hgb 9.8 L D (14.0-18.0) g/dL Hct 28.6 L (42.0-52.0) % MCV 104.8 (80.0-105.0) fl MCH 35.9 H (25.0-35.0) pg MCHC 34.3 (31.0-37.0) g/dl RDW 15.4 H (11.5-14.5) % Plt Count 81 L (120.0-450.0) 10^3/uL MPV 9.5 (7.0-11.0) fl Gran % (50.0-68.0) % Lymph % (Auto) (22.0-35.0) % Owsley % (Auto) (1.0-6.0) % Eos % (Auto) (1.5-5.0) % Baso % (Auto) (0.0-3.0) % Gran # (1.4-6.5) Lymph # (1.2-3.4) Owsley # (0.1-0.6) Eos # (0.0-0.7) Baso # (0.0-2.0) K/mm3 PT (9.4-12.5) SECONDS INR (0.93-1.08) APTT 32.8 (25.1-36.5) Seconds Sodium (132-148) mmol/L Potassium (3.6-5.0) mmol/L Chloride (98-107) mmol/L Carbon Dioxide (21-33) mmol/L Anion Gap (10-20) BUN (7-21) mg/dL Creatinine (0.8-1.5) mg/dl Est GFR ( Amer) Est GFR (Non-Af Amer) Random Glucose (70-110) mg/dL Calcium (8.4-10.5) mg/dL Magnesium (1.7-2.2) mg/dL Total Bilirubin (0.2-1.3) mg/dL AST (17-59) U/L ALT (7-56) U/L Alkaline Phosphatase (38-126) U/L Total Protein (5.8-8.3) g/dL Albumin (3.0-4.8) g/dL Globulin gm/dL Albumin/Globulin Ratio (1.1-1.8) Laboratory Results - last 24 hr 10/01/17 10/01/17 10/02/17 17:53 20:37 06:30 WBC 3.1 L D 3.4 L RBC 2.73 L 2.80 L Hgb 9.8 L D 10.1 L Hct 28.6 L 29.9 L MCV 104.8 106.8 H MCH 35.9 H 36.1 H MCHC 34.3 33.8 RDW 15.4 H 15.7 H Plt Count 81 L 92 L MPV 9.5 10.1 Gran % 75.4 H Lymph % (Auto) 14.0 L Owsley % (Auto) 9.4 H Eos % (Auto) 0.9 L Baso % (Auto) 0.3 Gran # 2.58 Lymph # 0.5 L Owsley # 0.3 Eos # 0.0 Baso # 0.01 PT INR APTT 32.8 Sodium Potassium Chloride Carbon Dioxide Anion Gap BUN Creatinine Est GFR ( Amer) Est GFR (Non-Af Amer) Random Glucose Calcium Magnesium Total Bilirubin AST ALT Alkaline Phosphatase Total Protein Albumin Globulin Albumin/Globulin Ratio 10/02/17 10/02/17 06:30 06:30 WBC RBC Hgb Hct MCV MCH MCHC RDW Plt Count MPV Gran % Lymph % (Auto) Owsley % (Auto) Eos % (Auto) Baso % (Auto) Gran # Lymph # Owsley # Eos # Baso # PT 11.0 INR 1.00 APTT 36.3 Sodium 132 Potassium 3.9 Chloride 101 Carbon Dioxide 30 Anion Gap 4 L BUN 11 Creatinine 0.7 L Est GFR ( Amer) > 60 Est GFR (Non-Af Amer) > 60 Random Glucose 81 Calcium 7.9 L Magnesium 1.4 L Total Bilirubin 0.8 AST 53 ALT 42 Alkaline Phosphatase 71 Total Protein 4.8 L Albumin 2.2 L Globulin 2.5 Albumin/Globulin Ratio 0.9 L EKG/Cardiology Studies: Cardiology / EKG Studies 10/02/17 06:00 ELECTROCARDIOGRAM Routine Comment: Reason For Exam: acute PE Critical Care Progress Note - Nutrition Nutrition: Nutrition Category Date Time Status Heart Healthy Diet [DIET] Diets 10/02/17 Lunch Ordered Liquid Diet [DIET] Diets 10/01/17 Dinner Ordered Assessment/Plan - Assessment and Plan (Free Text) Assessment: 67yo M with PMHx of heart failure s/p AICD, diagnosed with Left LE DVT on 09/30 and was started on Warfarin outpatient. Massive central Pulmonary embolus noted on 10/01, started on heparin drip. Interventional Radiology placed EKOS catheter directed thrombolysis and retrievable IVC filter on 10/01, catheters removed this morning and Heparin ggt continued. 1. Central Pulmonary Embolism. Left Lower Extremity DVT. Consulted Interventional Radiology, Dr. Cal Castorena placed catheter directed thrombolysis and IVC filter on 10/01 Removed EKOS catheters this morning OOB to chair this evening bilateral lower extremity SANDRA stockings ordered on Heparin ggt, f/u PTT and titrate until therapeutic f/u ECHO to r/o RV strain currently HD stable Comfortable, talking in full sentences Hold Warfarin Plan for DOAC initiation tomorrow morning with 4 hours of heparin overlap 2. Hx of heart failure s/p hx of AICD f/u ECHO Cardiology following, Dr. Hong, appreciate recs 3. Tobacco abuse current 1+ppd smoker Nicotine patch prn 4. PPx Protonix on Heparin ggt SANDRA stockings SCDs contraindicated Discussed case with Dr. Bisi Barnes PGY1 <Stephan Lara - Last Filed: 10/02/17 11:00> CCU Objective - Vital Signs / Intake & Output Vital Signs (Last 4 hours): Vital Signs Pulse BP 10/02/17 10:00 85 10/02/17 09:46 135/78 10/02/17 09:45 88 Intake and Output (Last 8hrs): Intake & Output 10/01/17 10/02/17 10/02/17 22:59 06:59 14:59 Intake Total 2132 Output Total 400 Balance 1732 Weight 247 lb 14.4 oz Intake: IV 1882 Left Femoral 816 Right Femoral 816 Oral 250 Output: Urine 400 Urethral (Conrad) 400 - Medications Active Medications: Active Medications Generic Name Dose Route Start Last Admin Trade Name Freq PRN Reason Stop Dose Admin Acetaminophen 650 mg 10/01/17 13:30 Tylenol 325mg Tab PO Q4H PRN Pain, Mild (1-3) Albuterol/Ipratropium 3 ml 10/01/17 09:19 Duoneb 3 Mg/0.5 Mg (3 Ml) Ud IH Q2H PRN Shortness of Breath Amlodipine Besylate 10 mg 10/01/17 10:00 10/02/17 09:46 Norvasc PO 10 mg DAILY JIMMY Administration Carvedilol 6.25 mg 10/01/17 10:00 10/02/17 09:45 Coreg PO 6.25 mg BID JIMMY Administration Heparin Sodium/Sodium Chloride 25,000 units in 250 mls @ 13.896 mls/hr 09:15 10/02/17 09:29 Heparin 61835 Units/250ml 1/2 Normal Saline IV 18 units/kg/hr .Q18H PRN 13.896 mls/hr ADJUST RATE PER PROTOCOL Administration Protocol 18 UNITS/KG/HR Alteplase, Recombinant 10 mg/ 500 mls @ 25 mls/hr 10/02/17 00:45 10/02/17 02: 56 Sodium Chloride IV 25 mls/hr .Q20H JIMMY Administration Isosorbide Dinitrate 60 mg 10/01/17 10:00 10/02/17 09:46 Isordil PO 60 mg DAILY JIMMY Administration Lorazepam 2 mg 10/01/17 13:30 10/01/17 23:18 Ativan IVP 2 mg Q6H PRN Administration Anxiety Magnesium Oxide 400 mg 10/02/17 10:00 10/02/17 09:46 Mag-Ox PO 400 mg BID JIMMY Administration Oxycodone/Acetaminophen 1 tab 10/01/17 13:30 10/01/17 21:59 Percocet 5/325 Mg Tab PO 10/04/17 13:31 1 tab Q6H PRN Administration Pain, moderate (4-7) Pantoprazole Sodium 40 mg 10/01/17 13:45 10/02/17 09:46 Protonix Inj IVP 40 mg DAILY JIMMY Administration - Patient Studies Lab Studies: Lab Studies 10/02/17 10/02/17 10/02/17 Range/Units 06:30 06:30 06:30 WBC 3.4 L (4.5-11.0) 10^3/ul RBC 2.80 L (3.5-6.1) 10^6/uL Hgb 10.1 L (14.0-18.0) g/dL Hct 29.9 L (42.0-52.0) % MCV 106.8 H (80.0-105.0) fl MCH 36.1 H (25.0-35.0) pg MCHC 33.8 (31.0-37.0) g/dl RDW 15.7 H (11.5-14.5) % Plt Count 92 L (120.0-450.0) 10^3/uL MPV 10.1 (7.0-11.0) fl Gran % 75.4 H (50.0-68.0) % Lymph % (Auto) 14.0 L (22.0-35.0) % Owsley % (Auto) 9.4 H (1.0-6.0) % Eos % (Auto) 0.9 L (1.5-5.0) % Baso % (Auto) 0.3 (0.0-3.0) % Gran # 2.58 (1.4-6.5) Lymph # 0.5 L (1.2-3.4) Owsley # 0.3 (0.1-0.6) Eos # 0.0 (0.0-0.7) Baso # 0.01 (0.0-2.0) K/mm3 PT 11.0 (9.4-12.5) SECONDS INR 1.00 (0.93-1.08) APTT 36.3 (25.1-36.5) Seconds Sodium 132 (132-148) mmol/L Potassium 3.9 (3.6-5.0) mmol/L Chloride 101 (98-107) mmol/L Carbon Dioxide 30 (21-33) mmol/L Anion Gap 4 L (10-20) BUN 11 (7-21) mg/dL Creatinine 0.7 L (0.8-1.5) mg/dl Est GFR ( Amer) > 60 Est GFR (Non-Af Amer) > 60 Random Glucose 81 (70-110) mg/dL Calcium 7.9 L (8.4-10.5) mg/dL Magnesium 1.4 L (1.7-2.2) mg/dL Total Bilirubin 0.8 (0.2-1.3) mg/dL AST 53 (17-59) U/L ALT 42 (7-56) U/L Alkaline Phosphatase 71 (38-126) U/L Total Protein 4.8 L (5.8-8.3) g/dL Albumin 2.2 L (3.0-4.8) g/dL Globulin 2.5 gm/dL Albumin/Globulin Ratio 0.9 L (1.1-1.8) 10/01/17 10/01/17 Range/Units 20:37 17:53 WBC 3.1 L D (4.5-11.0) 10^3/ul RBC 2.73 L (3.5-6.1) 10^6/uL Hgb 9.8 L D (14.0-18.0) g/dL Hct 28.6 L (42.0-52.0) % MCV 104.8 (80.0-105.0) fl MCH 35.9 H (25.0-35.0) pg MCHC 34.3 (31.0-37.0) g/dl RDW 15.4 H (11.5-14.5) % Plt Count 81 L (120.0-450.0) 10^3/uL MPV 9.5 (7.0-11.0) fl Gran % (50.0-68.0) % Lymph % (Auto) (22.0-35.0) % Owsley % (Auto) (1.0-6.0) % Eos % (Auto) (1.5-5.0) % Baso % (Auto) (0.0-3.0) % Gran # (1.4-6.5) Lymph # (1.2-3.4) Owsley # (0.1-0.6) Eos # (0.0-0.7) Baso # (0.0-2.0) K/mm3 PT (9.4-12.5) SECONDS INR (0.93-1.08) APTT 32.8 (25.1-36.5) Seconds Sodium (132-148) mmol/L Potassium (3.6-5.0) mmol/L Chloride (98-107) mmol/L Carbon Dioxide (21-33) mmol/L Anion Gap (10-20) BUN (7-21) mg/dL Creatinine (0.8-1.5) mg/dl Est GFR ( Amer) Est GFR (Non-Af Amer) Random Glucose (70-110) mg/dL Calcium (8.4-10.5) mg/dL Magnesium (1.7-2.2) mg/dL Total Bilirubin (0.2-1.3) mg/dL AST (17-59) U/L ALT (7-56) U/L Alkaline Phosphatase (38-126) U/L Total Protein (5.8-8.3) g/dL Albumin (3.0-4.8) g/dL Globulin gm/dL Albumin/Globulin Ratio (1.1-1.8) Laboratory Results - last 24 hr 10/01/17 10/01/17 10/02/17 17:53 20:37 06:30 WBC 3.1 L D 3.4 L RBC 2.73 L 2.80 L Hgb 9.8 L D 10.1 L Hct 28.6 L 29.9 L MCV 104.8 106.8 H MCH 35.9 H 36.1 H MCHC 34.3 33.8 RDW 15.4 H 15.7 H Plt Count 81 L 92 L MPV 9.5 10.1 Gran % 75.4 H Lymph % (Auto) 14.0 L Owsley % (Auto) 9.4 H Eos % (Auto) 0.9 L Baso % (Auto) 0.3 Gran # 2.58 Lymph # 0.5 L Owsley # 0.3 Eos # 0.0 Baso # 0.01 PT INR APTT 32.8 Sodium Potassium Chloride Carbon Dioxide Anion Gap BUN Creatinine Est GFR ( Amer) Est GFR (Non-Af Amer) Random Glucose Calcium Magnesium Total Bilirubin AST ALT Alkaline Phosphatase Total Protein Albumin Globulin Albumin/Globulin Ratio 10/02/17 10/02/17 06:30 06:30 WBC RBC Hgb Hct MCV MCH MCHC RDW Plt Count MPV Gran % Lymph % (Auto) Owsley % (Auto) Eos % (Auto) Baso % (Auto) Gran # Lymph # Owsley # Eos # Baso # PT 11.0 INR 1.00 APTT 36.3 Sodium 132 Potassium 3.9 Chloride 101 Carbon Dioxide 30 Anion Gap 4 L BUN 11 Creatinine 0.7 L Est GFR ( Amer) > 60 Est GFR (Non-Af Amer) > 60 Random Glucose 81 Calcium 7.9 L Magnesium 1.4 L Total Bilirubin 0.8 AST 53 ALT 42 Alkaline Phosphatase 71 Total Protein 4.8 L Albumin 2.2 L Globulin 2.5 Albumin/Globulin Ratio 0.9 L EKG/Cardiology Studies: Cardiology / EKG Studies 10/02/17 06:00 ELECTROCARDIOGRAM Routine Comment: Reason For Exam: acute PE Critical Care Progress Note - Nutrition Nutrition: Nutrition Category Date Time Status Heart Healthy Diet [DIET] Diets 10/02/17 Lunch Ordered Liquid Diet [DIET] Diets 10/01/17 Dinner Ordered Assessment/Plan - Assessment and Plan (Free Text) Assessment: Patient seen and examined, agree with note, with following additions/exceptions: Patient is 67yo male with PMHx of CHF, s/p AICD, admitted with large PE, with right heart strain on CT Angio chest, s/p IR EKOS catheter directed thrombolysis , and IVC filter. Currently the patient is awake, alert, NAD, comfortable, HD stable, o2 sat 94% on 2LNC. Catheters removed this morning by Dr Castorena, tolerated the procedure well. Central PE Right heart Strain Tobacco use - Start heparin drip, goal ptt 60-80 - obtain ECHO - LE stockings - plan is to start NOAC, Eliquis tomorrow morning with overlap with heparin, as per IR - monitor groin sites - follow up cardiology - nicotine patch - GI ppx - OOB to chair - continue care in MICU critical care time 35 minutes
[2017-10-02] MEDS: Oxycodone/Acetaminophen 5/325 mg Tab PO PRN (11:01)
--- NOTE | 2017-10-02 14:42 | CARD ---
APPROVED REPORT EXAM: Two-dimensional and M-mode echocardiogram with Doppler and color Doppler. INDICATION Pulmonary Embolism 2D DIMENSIONS Left Atrium (2D)4.0 (1.6-4.0cm)IVSd1.2 (0.7-1.1cm) LVDd4.9 (3.9-5.9cm)PWd1.3 (0.7-1.1cm) LVDs4.2 (2.5-4.0cm)FS (%) 15.5 % LVEF (%)32.4 (>50%) M-Mode DIMENSIONS Aortic Root4.00 (2.2-3.7cm)Aortic Cusp Exc.2.40 (1.5-2.0cm) Aortic Valve AoV Peak Xyplerlm624.0cm/Reza Peak GR.4mmHg Mitral Valve MV E Xywajpqr04.9cm/sMV A Xulvbawq03.2cm/sE/A ratio0.7 TDI Lateral E' Peak V7.80cm/sMedial E' Peak V5.17cm/sE/Lateral E'5.5 E/Medial E'8.3 Pulmonary Valve PV Peak Kenquqyj99.9cm/sPV Peak Grad.1mmHg Tricuspid Valve TR Peak Sfvtpisk911mm/sRAP [id number] Peak Gr.24mmHg [id number] LEFT VENTRICLE The left ventricle is normal size. There is mild concentric left ventricular hypertrophy. The systolic function is mildly impaired. There is global hypokinesis of the left ventricle. RIGHT VENTRICLE The right ventricle is normal size. The right ventricular systolic function is normal. There is an ICD lead in the right ventricle. ATRIA The left atrium size is normal. The right atrium size is normal. The interatrial septum is intact with no evidence for an atrial septal defect. AORTIC VALVE The aortic valve is mildly sclerotic. No aortic regurgitation is present. There is no aortic valvular stenosis. MITRAL VALVE The mitral valve is normal in structure. There is no mitral valve regurgitation noted. TRICUSPID VALVE There is mild tricuspid regurgitation. GREAT VESSELS The aortic root is normal in size. The IVC is normal in size and collapses >50% with inspiration. PERICARDIAL EFFUSION There is no pleural effusion. There is no pericardial effusion. <Conclusion> Normal chamber size. Mildly reduced LV systolic function with global hypokinesis. Mild tricuspid regurgitation. No evidence of pulmonary hypertension. ICD lead noted in RV.
--- NOTE | 2017-10-02 14:51 | PN ---
DATE: 10/02/2017 The patient is in room 129, bed 6. SUBJECTIVE: The patient was admitted yesterday for DVT with pulmonary emboli. He was walking up the stairs and he stopped when he noticed some shortness of breath. An ambulance was called, he was brought to the ER. Of note, the patient was seen in the office 3 days prior, and he was sent for a venous ultrasound to rule out DVT. The ultrasound showed first a left lower leg DVT. The patient is currently lying in bed in the Intensive Care Unit and Dr. David Castorena is removing a central catheter where the patient was receiving TPA. He has no complaints at this time. PHYSICAL EXAMINATION: VITAL SIGNS: Reveal temperature of 97.4, pulse rate is 67, respiratory rate of 60 with an O2 saturation of 98% on room air. HEENT: PERRLA, EOMI. There is no icterus present. NECK: Supple with a full range of motion. No bruits appreciated. HEART: Regular rate and rhythm. No murmurs, rubs or gallops. LUNGS: Clear. ABDOMEN: Benign. NEUROLOGIC: The patient is intact. ASSESSMENT AND PLAN: The patient will be continued on IV heparin and later placed on p.o. Coumadin. We will continue current regimen. Wyatt Nava MD
[2017-10-02] MEDS ORDERED: Heparin 25,000units in D5W /250 ML BAG IV PRN (22:07)
[2017-10-02] MEDS ORDERED: Heparin25000 units/250ml 1/2NS 25,000 UNITS/250 ML BAG IV SCH (22:15)
--- NOTE | 2017-10-02 23:16 | CARD ---
APPROVED REPORT EKG Measurement Heart [id number] DC [id number] <Conclusion> Normal sinus rhythm RSR' or QR pattern in V1 suggests right ventricular conduction delay Left anterior fascicular block Nonspecific T wave abnormality Abnormal ECG
[2017-10-03] MEDS ORDERED: Heparin25000 units/250ml 1/2NS 25,000 UNITS/250 ML BAG IV PRN (03:59)
[2017-10-03 06:16] LABS: BASO # 0.01 K/mm3 (0.0-2.0); BASO % 0.3 % (0.0-3.0); EOS % 1.1 % (1.5-5.0); GRAN # 2.79 (1.4-6.5); GRAN % 74.1 % (50.0-68.0); HEMATOCRIT 31.1 % (42.0-52.0); LYMPH # 0.7 (1.2-3.4); LYMPH % 18.1 % (22.0-35.0); MEAN CELL VOLUME 106.1 fl (80.0-105.0); MEAN CORPUSCULAR HEMOGLOBIN 35.5 pg (25.0-35.0); MEAN CORPUSCULAR HGB CONC 33.4 g/dl (31.0-37.0); MEAN PLATELET VOLUME 10.1 fl (7.0-11.0); MONO # 0.2 (0.1-0.6); MONO % 6.4 % (1.0-6.0); RED CELL DISTRIBUTION WIDTH 15.1 % (11.5-14.5); WHITE BLOOD COUNT 3.8 10^3/ul (4.5-11.0)
[2017-10-03 06:28] LABS: INR 1.03 (0.93-1.08)
[2017-10-03 06:38] LABS: ALB/GLOB RATIO 0.9 (1.1-1.8); ALKALINE PHOSPHATASE 82 U/L (38-126); ALT/SGPT 33 U/L (7-56); AST/SGOT 52 U/L (17-59); BILIRUBIN,TOTAL 0.5 mg/dL (0.2-1.3); BLOOD UREA NITROGEN 10 mg/dL (7-21); CALCIUM 7.9 mg/dL (8.4-10.5); CARBON DIOXIDE 29 mmol/L (21-33); CHLORIDE 105 mmol/L (98-107); GFR AFRICAN-AMERICAN > 60; GLUCOSE,RANDOM 84 mg/dL (70-110); POTASSIUM 3.8 mmol/L (3.6-5.0); SODIUM 133 mmol/L (132-148); TOTAL PROTEIN 4.7 g/dL (5.8-8.3)
--- NOTE | 2017-10-03 07:21 | PN ---
DATE: (--) PULMONARY PROGRESS NOTE SUBJECTIVE: The patient appears comfortable at rest. He is not short of breath. PHYSICAL EXAMINATION: VITAL SIGNS: Temperature is 96.8, pulse is 72, respirations 18, blood pressure 133/84. Oxygen saturation on nasal cannula is 96%. HEENT: Normocephalic, atraumatic. NECK: No JVD. CARDIOVASCULAR: Positive S1, S2. No S3 gallop. LUNGS: Clear bilaterally. EXTREMITIES: The left lower extremity continues to decrease in size. There is certainly less edema of the left lower extremity. The left calf is less tender to palpation. There is no cyanosis or clubbing. The right calf is nontender to palpation. GI: Abdomen is soft, nontender and nondistended. Bowel sounds are positive. SKIN: No acute rash. NEUROLOGIC: Limited at the present time. PERTINENT LABORATORY DATA: Echocardiogram was done yesterday and reviewed. The right ventricle is normal in size. The right ventricular systolic pressure is also normal in function. There is no evidence of pulmonary hypertension. IMPRESSION: 1. Acute bilateral pulmonary emboli. 2. Left deep venous thrombosis. 3. Chronic obstructive pulmonary disease. 4. Mild anemia. 5. Status post automatic implantable cardioverter-defibrillator placement. PLAN: The patient appears comfortable this morning. He is not short of breath at rest. He does state to feeling much better overall. I did discuss the case with the night nurse at length. I also discussed the case with the medical billing coder at length. The patient had a very good night. Eliquis will be added to the heparin protocol this morning. I did review the echocardiogram. The right ventricle is normal in size and function. There is no pulmonary hypertension. The patient appears to have had a significant response to the catheter directed thrombolysis. Clinical status of this patient is significantly improved-compared to the initial presentation. I will discuss the above with the entire ICU team the next few moments. I will also discuss the above with the attending physician later this morning. Christ Johnson MD PILAR
[2017-10-03] MEDS: Magnesium Oxide 400 mg Tab UD PO SCH ×2 (09:40→18:06)
[2017-10-03] MEDS: guaiFENesin-Codeine 100-10mg/5ml Syrup (5 ml) UD PO PRN ×2 (09:47→14:17)
--- NOTE | 2017-10-03 14:09 | PN ---
DATE: 10/03/2017 SUBJECTIVE: The patient was seen sitting in bed in the CCU. He states he is comfortable. His dyspnea continues to improve. CURRENT MEDICATIONS: Include carvedilol 6.25 mg b.i.d., DuoNeb inhalers, Eliquis 5 mg b.i.d., IV heparin, Isordil 60 mg daily, Norvasc 10 mg daily, Protonix, Robitussin, and Percocet p.r.n.. OBJECTIVE: GENERAL: He is a middle-aged man who appears comfortable at the present time. VITAL SIGNS: His blood pressure is 150/90 with a pulse of 76 in sinus, respirations are 16. He is currently afebrile. HEENT: Negative. CHEST: Few scattered rhonchi heard. HEART: PMI displaced laterally with systolic murmur in the left sternal border. ABDOMEN: Soft, nontender, with normoactive bowel sounds. EXTREMITIES: No edema. DIAGNOSTIC DATA: Potassium is 3.8, BUN and creatinine of 10 and 0.6. White count 3.8, hemoglobin and hematocrit 10.4 and 31.1 with an MCV of 106, platelet count is 96,000, PTT 152. His echocardiogram revealed normal chamber size with mild tricuspid regurgitation, mildly reduced LV systolic function with global hypokinesis. IMPRESSION: 1. Bilateral pulmonary embolus, status post thrombolysis, clinically improved. 2. Lower extremity deep venous thromboses. 3. Mild cardiomyopathy. 4. Thrombocytopenia with macrocytic anemia, details of prior workup unclear. 5. Remote cardiac arrest, status post implantable cardioverter-defibrillator implant, clinically stable. RECOMMENDATIONS: 1. His current medications will continue for now. He does have some concerns about Eliquis use given the lack of reversal agent at the present time. The patient may prefer chronic Coumadin therapy. 2. If not previously evaluated, his thrombocytopenia and macrocytic anemia should be looked into more carefully. After 24 hours, his IV heparin will be discontinued. From cardiac standpoint, he appears stable for transferred to telemetry. We will continue to follow him and make further recommendations as appropriate. Dante Garcia MD
--- NOTE | 2017-10-03 15:20 | CP.CCUPN ---
<[employer] - Last Filed: 10/03/17 15:37> CCU Subjective - Physician Review Subjective (Free Text): Patient seen and examined at bedside. Resting comfortably in bed. No acute overnight events. Patient states SOB and chest discomfort have significantly improved compared to baseline. Offers no new complaints at this time. Denies fever, chills, abdominal pain, nausea, vomiting, diarrhea, constipation, and urinary symptoms. 10/03/17 15:17 CCU Objective - Vital Signs / Intake & Output Intake and Output (Last 8hrs): Intake & Output 10/03/17 10/03/17 10/03/17 06:59 14:59 22:59 Intake Total 307 118 Output Total 600 400 Balance -293 -282 Intake: IV 107 118 Oral 200 Output: Urine 600 400 Urethral (Conrad) 600 400 - Physical Exam Head: Positive for: Atraumatic, Normocephalic Extroacular Muscles: Positive for: EOMI Conjunctiva: Positive for: Normal Mouth: Positive for: Moist Mucous Membranes Neck: Negative for: JVD Respiratory/Chest: Positive for: Good Air Exchange. Negative for: Respiratory Distress, Wheezes, Decreased Breath Sounds Cardiovascular: Positive for: Regular Rate and Rhythm. Negative for: Murmurs, Tachycardic, Rub, Gallop Abdomen: Negative for: Tenderness, Distention, Rebound, Guarding Upper Extremity: Positive for: Normal Inspection Lower Extremity: Positive for: Normal Inspection Neurological: Positive for: GCS=15, CN II-XII Intact, Speech Normal Skin: Positive for: Warm, Dry, Normal Color Psychiatric: Positive for: Alert, Oriented x 3, Normal Insight, Normal Concentration - Medications Active Medications: Active Medications Generic Name Dose Route Start Last Admin Trade Name Freq PRN Reason Stop Dose Admin Acetaminophen 650 mg 10/01/17 13:30 Tylenol 325mg Tab PO Q4H PRN Pain, Mild (1-3) Albuterol/Ipratropium 3 ml 10/01/17 09:19 Duoneb 3 Mg/0.5 Mg (3 Ml) Ud IH Q2H PRN Shortness of Breath Amlodipine Besylate 10 mg 10/01/17 10:00 10/03/17 09:40 Norvasc PO 10 mg DAILY JIMMY Administration Apixaban 5 mg 10/03/17 10:00 10/03/17 09:40 Eliquis PO 5 mg BID JIMMY Administration Protocol Carvedilol 6.25 mg 10/01/17 10:00 10/03/17 09:41 Coreg PO 6.25 mg BID JIMMY Administration Guaifenesin/Codeine Phosphate 5 ml 10/03/17 08:43 10/03/17 14:17 Robitussin W/Codeine PO 5 ml Q4H PRN Administration Cough and congestion Alteplase, Recombinant 10 mg/ 500 mls @ 25 mls/hr 10/02/17 00:45 10/02/17 02: 56 Sodium Chloride IV 25 mls/hr .Q20H JIMMY Administration Isosorbide Dinitrate 60 mg 10/01/17 10:00 10/03/17 09:40 Isordil PO 60 mg DAILY JIMMY Administration Lorazepam 2 mg 10/01/17 13:30 10/03/17 01:46 Ativan IVP 2 mg Q6H PRN Administration Anxiety Magnesium Oxide 400 mg 10/02/17 10:00 10/03/17 09:40 Mag-Ox PO 400 mg BID JIMMY Administration Nicotine 1 patch 10/03/17 14:30 10/03/17 14:58 Nicoderm Cq TD 1 patch DAILY JIMMY Administration Oxycodone/Acetaminophen 1 tab 10/01/17 13:30 10/02/17 11:01 Percocet 5/325 Mg Tab PO 10/04/17 13:31 1 tab Q6H PRN Administration Pain, moderate (4-7) Pantoprazole Sodium 40 mg 10/01/17 13:45 10/03/17 09:41 Protonix Inj IVP 40 mg DAILY JIMMY Administration - Patient Studies Lab Studies: Microbiology Studies 10/01/17 11:20 MRSA Culture (Admit) - Final Naris MRSA NOT DETECTED Lab Studies 10/03/17 10/03/17 10/03/17 Range/Units 05:15 05:15 05:15 WBC (4.5-11.0) 10^3/ul RBC (3.5-6.1) 10^6/uL Hgb (14.0-18.0) g/dL Hct (42.0-52.0) % MCV (80.0-105.0) fl MCH (25.0-35.0) pg MCHC (31.0-37.0) g/dl RDW (11.5-14.5) % Plt Count (120.0-450.0) 10^3/uL MPV (7.0-11.0) fl Gran % (50.0-68.0) % Lymph % (Auto) (22.0-35.0) % [place] % (Auto) (1.0-6.0) % Eos % (Auto) (1.5-5.0) % Baso % (Auto) (0.0-3.0) % Gran # (1.4-6.5) Lymph # (1.2-3.4) [place] # (0.1-0.6) Eos # (0.0-0.7) Baso # (0.0-2.0) K/mm3 PT (9.4-12.5) SECONDS INR (0.93-1.08) APTT 81.8 H (25.1-36.5) Seconds Sodium 133 (132-148) mmol/L Potassium 3.8 (3.6-5.0) mmol/L Chloride 105 (98-107) mmol/L Carbon Dioxide 29 (21-33) mmol/L Anion Gap 4 L (10-20) BUN 10 (7-21) mg/dL Creatinine 0.6 L (0.8-1.5) mg/dl Est GFR ( Amer) > 60 Est GFR (Non-Af Amer) > 60 Random Glucose 84 (70-110) mg/dL Calcium 7.9 L (8.4-10.5) mg/dL Magnesium 1.8 (1.7-2.2) mg/dL Total Bilirubin 0.5 (0.2-1.3) mg/dL AST 52 (17-59) U/L ALT 33 (7-56) U/L Alkaline Phosphatase 82 (38-126) U/L Total Protein 4.7 L (5.8-8.3) g/dL Albumin 2.1 L (3.0-4.8) g/dL Globulin 2.5 gm/dL Albumin/Globulin Ratio 0.9 L (1.1-1.8) 10/03/17 10/03/17 10/03/17 Range/Units 05:15 05:15 01:40 WBC 3.8 L (4.5-11.0) 10^3/ul RBC 2.93 L (3.5-6.1) 10^6/uL Hgb 10.4 L (14.0-18.0) g/dL Hct 31.1 L (42.0-52.0) % MCV 106.1 H (80.0-105.0) fl MCH 35.5 H (25.0-35.0) pg MCHC 33.4 (31.0-37.0) g/dl RDW 15.1 H (11.5-14.5) % Plt Count 96 L (120.0-450.0) 10^3/uL MPV 10.1 (7.0-11.0) fl Gran % 74.1 H (50.0-68.0) % Lymph % (Auto) 18.1 L (22.0-35.0) % [place] % (Auto) 6.4 H (1.0-6.0) % Eos % (Auto) 1.1 L (1.5-5.0) % Baso % (Auto) 0.3 (0.0-3.0) % Gran # 2.79 (1.4-6.5) Lymph # 0.7 L (1.2-3.4) [place] # 0.2 (0.1-0.6) Eos # 0.0 (0.0-0.7) Baso # 0.01 (0.0-2.0) K/mm3 PT 11.3 (9.4-12.5) SECONDS INR 1.03 (0.93-1.08) APTT 152.0 H* (25.1-36.5) Seconds Sodium (132-148) mmol/L Potassium (3.6-5.0) mmol/L Chloride (98-107) mmol/L Carbon Dioxide (21-33) mmol/L Anion Gap (10-20) BUN (7-21) mg/dL Creatinine (0.8-1.5) mg/dl Est GFR ( Amer) Est GFR (Non-Af Amer) Random Glucose (70-110) mg/dL Calcium (8.4-10.5) mg/dL Magnesium (1.7-2.2) mg/dL Total Bilirubin (0.2-1.3) mg/dL AST (17-59) U/L ALT (7-56) U/L Alkaline Phosphatase (38-126) U/L Total Protein (5.8-8.3) g/dL Albumin (3.0-4.8) g/dL Globulin gm/dL Albumin/Globulin Ratio (1.1-1.8) 10/02/17 Range/Units 18:50 WBC (4.5-11.0) 10^3/ul RBC (3.5-6.1) 10^6/uL Hgb (14.0-18.0) g/dL Hct (42.0-52.0) % MCV (80.0-105.0) fl MCH (25.0-35.0) pg MCHC (31.0-37.0) g/dl RDW (11.5-14.5) % Plt Count (120.0-450.0) 10^3/uL MPV (7.0-11.0) fl Gran % (50.0-68.0) % Lymph % (Auto) (22.0-35.0) % [place] % (Auto) (1.0-6.0) % Eos % (Auto) (1.5-5.0) % Baso % (Auto) (0.0-3.0) % Gran # (1.4-6.5) Lymph # (1.2-3.4) [place] # (0.1-0.6) Eos # (0.0-0.7) Baso # (0.0-2.0) K/mm3 PT (9.4-12.5) SECONDS INR (0.93-1.08) APTT 178.7 H* (25.1-36.5) Seconds Sodium (132-148) mmol/L Potassium (3.6-5.0) mmol/L Chloride (98-107) mmol/L Carbon Dioxide (21-33) mmol/L Anion Gap (10-20) BUN (7-21) mg/dL Creatinine (0.8-1.5) mg/dl Est GFR ( Amer) Est GFR (Non-Af Amer) Random Glucose (70-110) mg/dL Calcium (8.4-10.5) mg/dL Magnesium (1.7-2.2) mg/dL Total Bilirubin (0.2-1.3) mg/dL AST (17-59) U/L ALT (7-56) U/L Alkaline Phosphatase (38-126) U/L Total Protein (5.8-8.3) g/dL Albumin (3.0-4.8) g/dL Globulin gm/dL Albumin/Globulin Ratio (1.1-1.8) Laboratory Results - last 24 hr 10/02/17 10/03/17 10/03/17 18:50 01:40 05:15 WBC 3.8 L RBC 2.93 L Hgb 10.4 L Hct 31.1 L MCV 106.1 H MCH 35.5 H MCHC 33.4 RDW 15.1 H Plt Count 96 L MPV 10.1 Gran % 74.1 H Lymph % (Auto) 18.1 L [place] % (Auto) 6.4 H Eos % (Auto) 1.1 L Baso % (Auto) 0.3 Gran # 2.79 Lymph # 0.7 L [place] # 0.2 Eos # 0.0 Baso # 0.01 PT INR APTT 178.7 H* 152.0 H* Sodium Potassium Chloride Carbon Dioxide Anion Gap BUN Creatinine Est GFR ( Amer) Est GFR (Non-Af Amer) Random Glucose Calcium Magnesium Total Bilirubin AST ALT Alkaline Phosphatase Total Protein Albumin Globulin Albumin/Globulin Ratio 10/03/17 10/03/17 10/03/17 05:15 05:15 05:15 WBC RBC Hgb Hct MCV MCH MCHC RDW Plt Count MPV Gran % Lymph % (Auto) [place] % (Auto) Eos % (Auto) Baso % (Auto) Gran # Lymph # [place] # Eos # Baso # PT 11.3 INR 1.03 APTT 81.8 H Sodium 133 Potassium 3.8 Chloride 105 Carbon Dioxide 29 Anion Gap 4 L BUN 10 Creatinine 0.6 L Est GFR ( Amer) > 60 Est GFR (Non-Af Amer) > 60 Random Glucose 84 Calcium 7.9 L Magnesium Total Bilirubin 0.5 AST 52 ALT 33 Alkaline Phosphatase 82 Total Protein 4.7 L Albumin 2.1 L Globulin 2.5 Albumin/Globulin Ratio 0.9 L 10/03/17 05:15 WBC RBC Hgb Hct MCV MCH MCHC RDW Plt Count MPV Gran % Lymph % (Auto) [place] % (Auto) Eos % (Auto) Baso % (Auto) Gran # Lymph # [place] # Eos # Baso # PT INR APTT Sodium Potassium Chloride Carbon Dioxide Anion Gap BUN Creatinine Est GFR ( Amer) Est GFR (Non-Af Amer) Random Glucose Calcium Magnesium 1.8 Total Bilirubin AST ALT Alkaline Phosphatase Total Protein Albumin Globulin Albumin/Globulin Ratio Review of Systems - Review of Systems Review of Systems: 12-point review of systems negative except as indicated in the [facility] Critical Care Progress Note - Nutrition Nutrition: Nutrition Category Date Time Status Heart Healthy Diet [DIET] Diets 10/02/17 Lunch Ordered Assessment/Plan - Assessment and Plan (Free Text) Assessment: Patient is a 67 year old male with a PMHx of heart failure s/p AICD, diagnosed with Left LE DVT on 09/30 and was started on warfarin outpatient. Massive central pulmonary embolus noted on 10/01, started on heparin drip. Interventional Radiology placed EKOS catheter directed thrombolysis and retrievable IVC filter on 10/01, catheters removed and Heparin gtt started. Patient was transitioned to oral anticogulation and transitioned off of heparin drip. Plan: Neuro: Patient is awake, alert, responds to verbal stimuli, answers questions appropriately, follows commands, and moves extremities past midline Cardio: Hx of heart failure - s/p hx of AICD - cardiology following, Dr. Hong, appreciate rec - Repeat ECHO reviewed and appreciated- LVEF 32.4%, no pulmonary hypertension - HR trended, reviewed, and appreciated, will continue to monitor closely - BPs trended, reviewed, and appreciated, will continue to monitor closely - continue to monitor vitals Pulm: COPD; Emphysema - keep SaO2 above 92% - encouraged patient to follow up with job recruiter outpatient GI: - prophylaxis with protonix Renal/Electrolytes: - creatinine and BUN trended, reviewed, and appreciated, will continue to monitor closely Endo: - keep patient euglycemic Heme: Central Pulmonary Embolism. Left Lower Extremity DVT. - Interventional Radiology consulted, Dr. Cal Castorena placed catheter directed thrombolysis and IVC filter on 10/01, Removed EKOS catheters yesterday - Patient OOB to chair yesterday evening - Bilateral lower extremity SANDRA stockings - Patient transitioned to oral anticoagulation and heparin gtt overlaped for approximately 4 hours then discontinued - ECHO- LVEF 32.4%, no pulmonary hypertension Critical care team will sign off at this time. Please reconsult if needed. Thank you for the opportunity to participate in the care of this patient. Patient seen, case discussed with, and plan approved by attending physician, Dr. Coronado. <Andrew Coronado - Last Filed: 10/03/17 18:33> CCU Objective - Vital Signs / Intake & Output Vital Signs (Last 4 hours): Vital Signs Pulse 10/03/17 18:05 82 Intake and Output (Last 8hrs): Intake & Output 10/03/17 10/03/17 10/03/17 06:59 14:59 22:59 Intake Total 307 118 Output Total 600 400 Balance -293 -282 Intake: IV 107 118 Oral 200 Output: Urine 600 400 Urethral (Conrad) 600 400 - Medications Active Medications: Active Medications Generic Name Dose Route Start Last Admin Trade Name Freq PRN Reason Stop Dose Admin Acetaminophen 650 mg 10/01/17 13:30 Tylenol 325mg Tab PO Q4H PRN Pain, Mild (1-3) Albuterol/Ipratropium 3 ml 10/01/17 09:19 Duoneb 3 Mg/0.5 Mg (3 Ml) Ud IH Q2H PRN Shortness of Breath Amlodipine Besylate 10 mg 10/01/17 10:00 10/03/17 09:40 Norvasc PO 10 mg DAILY JIMMY Administration Apixaban 5 mg 10/03/17 10:00 10/03/17 18:06 Eliquis PO 5 mg BID JIMMY Administration Protocol Carvedilol 6.25 mg 10/01/17 10:00 10/03/17 18:05 Coreg PO 6.25 mg BID JIMMY Administration Guaifenesin/Codeine Phosphate 5 ml 10/03/17 08:43 10/03/17 14:17 Robitussin W/Codeine PO 5 ml Q4H PRN Administration Cough and congestion Alteplase, Recombinant 10 mg/ 500 mls @ 25 mls/hr 10/02/17 00:45 10/02/17 02: 56 Sodium Chloride IV 25 mls/hr .Q20H JIMMY Administration Isosorbide Dinitrate 60 mg 10/01/17 10:00 10/03/17 09:40 Isordil PO 60 mg DAILY JIMMY Administration Lorazepam 2 mg 10/01/17 13:30 10/03/17 01:46 Ativan IVP 2 mg Q6H PRN Administration Anxiety Magnesium Oxide 400 mg 10/02/17 10:00 10/03/17 18:06 Mag-Ox PO 400 mg BID JIMMY Administration Nicotine 1 patch 10/03/17 14:30 10/03/17 14:58 Nicoderm Cq TD 1 patch DAILY JMIMY Administration Oxycodone/Acetaminophen 1 tab 10/01/17 13:30 10/02/17 11:01 Percocet 5/325 Mg Tab PO 10/04/17 13:31 1 tab Q6H PRN Administration Pain, moderate (4-7) Pantoprazole Sodium 40 mg 10/01/17 13:45 10/03/17 09:41 Protonix Inj IVP 40 mg DAILY JIMMY Administration - Patient Studies Lab Studies: Microbiology Studies 10/01/17 11:20 MRSA Culture (Admit) - Final Naris MRSA NOT DETECTED Lab Studies 10/03/17 10/03/17 10/03/17 Range/Units 05:15 05:15 05:15 WBC (4.5-11.0) 10^3/ul RBC (3.5-6.1) 10^6/uL Hgb (14.0-18.0) g/dL Hct (42.0-52.0) % MCV (80.0-105.0) fl MCH (25.0-35.0) pg MCHC (31.0-37.0) g/dl RDW (11.5-14.5) % Plt Count (120.0-450.0) 10^3/uL MPV (7.0-11.0) fl Gran % (50.0-68.0) % Lymph % (Auto) (22.0-35.0) % [place] % (Auto) (1.0-6.0) % Eos % (Auto) (1.5-5.0) % Baso % (Auto) (0.0-3.0) % Gran # (1.4-6.5) Lymph # (1.2-3.4) [place] # (0.1-0.6) Eos # (0.0-0.7) Baso # (0.0-2.0) K/mm3 PT (9.4-12.5) SECONDS INR (0.93-1.08) APTT 81.8 H (25.1-36.5) Seconds Sodium 133 (132-148) mmol/L Potassium 3.8 (3.6-5.0) mmol/L Chloride 105 (98-107) mmol/L Carbon Dioxide 29 (21-33) mmol/L Anion Gap 4 L (10-20) BUN 10 (7-21) mg/dL Creatinine 0.6 L (0.8-1.5) mg/dl Est GFR ( Amer) > 60 Est GFR (Non-Af Amer) > 60 Random Glucose 84 (70-110) mg/dL Calcium 7.9 L (8.4-10.5) mg/dL Magnesium 1.8 (1.7-2.2) mg/dL Total Bilirubin 0.5 (0.2-1.3) mg/dL AST 52 (17-59) U/L ALT 33 (7-56) U/L Alkaline Phosphatase 82 (38-126) U/L Total Protein 4.7 L (5.8-8.3) g/dL Albumin 2.1 L (3.0-4.8) g/dL Globulin 2.5 gm/dL Albumin/Globulin Ratio 0.9 L (1.1-1.8) 10/03/17 10/03/17 10/03/17 Range/Units 05:15 05:15 01:40 WBC 3.8 L (4.5-11.0) 10^3/ul RBC 2.93 L (3.5-6.1) 10^6/uL Hgb 10.4 L (14.0-18.0) g/dL Hct 31.1 L (42.0-52.0) % MCV 106.1 H (80.0-105.0) fl MCH 35.5 H (25.0-35.0) pg MCHC 33.4 (31.0-37.0) g/dl RDW 15.1 H (11.5-14.5) % Plt Count 96 L (120.0-450.0) 10^3/uL MPV 10.1 (7.0-11.0) fl Gran % 74.1 H (50.0-68.0) % Lymph % (Auto) 18.1 L (22.0-35.0) % [place] % (Auto) 6.4 H (1.0-6.0) % Eos % (Auto) 1.1 L (1.5-5.0) % Baso % (Auto) 0.3 (0.0-3.0) % Gran # 2.79 (1.4-6.5) Lymph # 0.7 L (1.2-3.4) [place] # 0.2 (0.1-0.6) Eos # 0.0 (0.0-0.7) Baso # 0.01 (0.0-2.0) K/mm3 PT 11.3 (9.4-12.5) SECONDS INR 1.03 (0.93-1.08) APTT 152.0 H* (25.1-36.5) Seconds Sodium (132-148) mmol/L Potassium (3.6-5.0) mmol/L Chloride (98-107) mmol/L Carbon Dioxide (21-33) mmol/L Anion Gap (10-20) BUN (7-21) mg/dL Creatinine (0.8-1.5) mg/dl Est GFR ( Amer) Est GFR (Non-Af Amer) Random Glucose (70-110) mg/dL Calcium (8.4-10.5) mg/dL Magnesium (1.7-2.2) mg/dL Total Bilirubin (0.2-1.3) mg/dL AST (17-59) U/L ALT (7-56) U/L Alkaline Phosphatase (38-126) U/L Total Protein (5.8-8.3) g/dL Albumin (3.0-4.8) g/dL Globulin gm/dL Albumin/Globulin Ratio (1.1-1.8) 10/02/17 Range/Units 18:50 WBC (4.5-11.0) 10^3/ul RBC (3.5-6.1) 10^6/uL Hgb (14.0-18.0) g/dL Hct (42.0-52.0) % MCV (80.0-105.0) fl MCH (25.0-35.0) pg MCHC (31.0-37.0) g/dl RDW (11.5-14.5) % Plt Count (120.0-450.0) 10^3/uL MPV (7.0-11.0) fl Gran % (50.0-68.0) % Lymph % (Auto) (22.0-35.0) % [place] % (Auto) (1.0-6.0) % Eos % (Auto) (1.5-5.0) % Baso % (Auto) (0.0-3.0) % Gran # (1.4-6.5) Lymph # (1.2-3.4) [place] # (0.1-0.6) Eos # (0.0-0.7) Baso # (0.0-2.0) K/mm3 PT (9.4-12.5) SECONDS INR (0.93-1.08) APTT 178.7 H* (25.1-36.5) Seconds Sodium (132-148) mmol/L Potassium (3.6-5.0) mmol/L Chloride (98-107) mmol/L Carbon Dioxide (21-33) mmol/L Anion Gap (10-20) BUN (7-21) mg/dL Creatinine (0.8-1.5) mg/dl Est GFR ( Amer) Est GFR (Non-Af Amer) Random Glucose (70-110) mg/dL Calcium (8.4-10.5) mg/dL Magnesium (1.7-2.2) mg/dL Total Bilirubin (0.2-1.3) mg/dL AST (17-59) U/L ALT (7-56) U/L Alkaline Phosphatase (38-126) U/L Total Protein (5.8-8.3) g/dL Albumin (3.0-4.8) g/dL Globulin gm/dL Albumin/Globulin Ratio (1.1-1.8) Laboratory Results - last 24 hr 10/02/17 10/03/17 10/03/17 18:50 01:40 05:15 WBC 3.8 L RBC 2.93 L Hgb 10.4 L Hct 31.1 L MCV 106.1 H MCH 35.5 H MCHC 33.4 RDW 15.1 H Plt Count 96 L MPV 10.1 Gran % 74.1 H Lymph % (Auto) 18.1 L [place] % (Auto) 6.4 H Eos % (Auto) 1.1 L Baso % (Auto) 0.3 Gran # 2.79 Lymph # 0.7 L [place] # 0.2 Eos # 0.0 Baso # 0.01 PT INR APTT 178.7 H* 152.0 H* Sodium Potassium Chloride Carbon Dioxide Anion Gap BUN Creatinine Est GFR ( Amer) Est GFR (Non-Af Amer) Random Glucose Calcium Magnesium Total Bilirubin AST ALT Alkaline Phosphatase Total Protein Albumin Globulin Albumin/Globulin Ratio 10/03/17 10/03/17 10/03/17 05:15 05:15 05:15 WBC RBC Hgb Hct MCV MCH MCHC RDW Plt Count MPV Gran % Lymph % (Auto) [place] % (Auto) Eos % (Auto) Baso % (Auto) Gran # Lymph # [place] # Eos # Baso # PT 11.3 INR 1.03 APTT 81.8 H Sodium 133 Potassium 3.8 Chloride 105 Carbon Dioxide 29 Anion Gap 4 L BUN 10 Creatinine 0.6 L Est GFR ( Amer) > 60 Est GFR (Non-Af Amer) > 60 Random Glucose 84 Calcium 7.9 L Magnesium Total Bilirubin 0.5 AST 52 ALT 33 Alkaline Phosphatase 82 Total Protein 4.7 L Albumin 2.1 L Globulin 2.5 Albumin/Globulin Ratio 0.9 L 10/03/17 05:15 WBC RBC Hgb Hct MCV MCH MCHC RDW Plt Count MPV Gran % Lymph % (Auto) [place] % (Auto) Eos % (Auto) Baso % (Auto) Gran # Lymph # [place] # Eos # Baso # PT INR APTT Sodium Potassium Chloride Carbon Dioxide Anion Gap BUN Creatinine Est GFR ( Amer) Est GFR (Non-Af Amer) Random Glucose Calcium Magnesium 1.8 Total Bilirubin AST ALT Alkaline Phosphatase Total Protein Albumin Globulin Albumin/Globulin Ratio Critical Care Progress Note - Nutrition Nutrition: Nutrition Category Date Time Status Heart Healthy Diet [DIET] Diets 10/02/17 Lunch Ordered Attending/Attestation - Attestation I have personally seen and examined this patient.: Yes I have fully participated in the care of the patient.: Yes I have reviewed all pertinent clinical information: Yes Notes (Text): 10/03/17 18:31 67 yo male with COPD, emphysema, active smoker admitted to ICU for submassive PE s/p CD-tPA and systemic AC with heparin. Patient did very well overnight, started on eliquis, heparin stopped. Alert, oriented x 3, hemodynamically stable , conversing, moving all extremities, no neuro deficit. ccm time 40 min
[2017-10-04 05:34] LABS: BASO # 0.01 K/mm3 (0.0-2.0); BASO % 0.3 % (0.0-3.0); EOS % 1.1 % (1.5-5.0); GRAN # 2.75 (1.4-6.5); GRAN % 74.9 % (50.0-68.0); HEMATOCRIT 29.9 % (42.0-52.0); LYMPH # 0.6 (1.2-3.4); LYMPH % 15.8 % (22.0-35.0); MEAN CELL VOLUME 105.7 fl (80.0-105.0); MEAN CORPUSCULAR HEMOGLOBIN 35.7 pg (25.0-35.0); MEAN CORPUSCULAR HGB CONC 33.8 g/dl (31.0-37.0); MEAN PLATELET VOLUME 9.8 fl (7.0-11.0); MONO # 0.3 (0.1-0.6); MONO % 7.9 % (1.0-6.0); RED CELL DISTRIBUTION WIDTH 15.2 % (11.5-14.5); WHITE BLOOD COUNT 3.7 10^3/ul (4.5-11.0)
[2017-10-04 05:38] LABS: INR 1.15 (0.93-1.08)
[2017-10-04 05:54] LABS: GFR AFRICAN-AMERICAN > 60
[2017-10-04 05:55] LABS: ALKALINE PHOSPHATASE 80 U/L (38-126); ALT/SGPT 36 U/L (7-56)
[2017-10-04 06:12] LABS: ALB/GLOB RATIO 0.8 (1.1-1.8); BILIRUBIN,TOTAL 0.5 mg/dL (0.2-1.3); BLOOD UREA NITROGEN 7 mg/dL (7-21); CALCIUM 7.9 mg/dL (8.4-10.5); CARBON DIOXIDE 28 mmol/L (21-33); CHLORIDE 107 mmol/L (98-107); GLUCOSE,RANDOM 85 mg/dL (70-110); POTASSIUM 3.5 mmol/L (3.6-5.0); SODIUM 135 mmol/L (132-148); TOTAL PROTEIN 4.6 g/dL (5.8-8.3)
[2017-10-04 06:13] LABS: AST/SGOT 36 U/L (17-59)
[2017-10-04] MEDS: guaiFENesin-Codeine 100-10mg/5ml Syrup (5 ml) UD PO PRN ×3 (07:57→21:13)
--- NOTE | 2017-10-04 09:03 | PN ---
DATE: 10/04/2017 SUBJECTIVE: The patient is seen lying in bed in the CCU and he remains comfortable. He denies any dyspnea. CURRENT MEDICATIONS: Include Ativan p.r.n., carvedilol 6.25 mg b.i.d., DuoNeb inhalers, Eliquis 5 mg b.i.d., Isordil 60 mg daily, Nicoderm patch, Norvasc 10 mg daily, and Protonix. OBJECTIVE: GENERAL: He is a middle-aged man who appears comfortable at the present time. VITAL SIGNS: His blood pressure is 140/100 with a pulse of 90 in sinus, respirations are 16. He is afebrile. HEENT: No JVD. CHEST: Few scattered rhonchi heard. HEART: PMI normal position, systolic murmur in the lower left sternal border. ABDOMEN: Soft, nontender with bowel sounds. EXTREMITIES: No edema. DIAGNOSTIC DATA: Morning blood work is pending. IMPRESSION: 1. Bilateral pulmonary embolus, status post thrombolysis, clinically improved. 2. Lower extremity deep venous thrombosis. 3. Mild cardiomyopathy. 4. Status post remote cardiac arrest and implantable cardioverter-defibrillator implant. 5. Macrocytic anemia, thrombocytopenia. RECOMMENDATIONS: Oral Eliquis will be continued. Transferred to the floor would be reasonable, if not previously confirmed evaluation of his anemia and thrombocytopenia should be entertained. Workup for hypercoagulability should also be planned. We will be happy to follow along as needed. Dante Garcia MD
[2017-10-04] MEDS: Magnesium Oxide 400 mg Tab UD PO SCH ×2 (09:19→17:55)
[2017-10-04] MEDS ORDERED: Potassium Chloride 20 mEq ER Tab PO ONE (09:36)
--- NOTE | 2017-10-04 15:32 | PN ---
SUBJECTIVE: The patient was seen and examined at bedside in the ICU. No acute events overnight. He remains afebrile and hemodynamically stable. This morning he feels well, albeit tired, and offers no specific complaints. He is presently pending transfer to the telemetry [place]. OBJECTIVE: VITAL SIGNS: Temperature 98.4, pulse 77, blood pressure 128/71, respiratory rate 16, and oxygen saturation 94% on 2 L nasal cannula. GENERAL: Thin, frail man, lying in bed, in no apparent distress. HEENT: PERRL. EOMI. No scleral icterus. No conjunctival pallor. NECK: No JVD. No bruits. LUNGS: Clear to auscultation. CARDIOVASCULAR: Regular rate and rhythm. Normal S1 and S2. AICD to left anterior chest wall. ABDOMEN: Normoactive bowel sounds. Soft, nontender, and nondistended. EXTREMITIES: Right lower extremity with no edema. Left lower extremity with trace edema. NEUROLOGIC: Awake, alert, and oriented x3. No focal motor deficits. LABORATORY DATA: WBC 3.7, hemoglobin 10, hematocrit 30, platelets 107. Chemistry reviewed and unremarkable. ASSESSMENT: The patient is a 67 year old man with a past medical history of hypertension, hyperlipidemia, cardiomyopathy s/p AICD and extensive smoking history who was recently diagnosed with left lower extremity DVT and subsequently presented with a 1 day history of dyspnea and was found to have bilateral PE, who was initially admitted to the ICU for catheter-directed thrombolysis, and now pending transfer to the telemetry [place] for continued anticoagulation thereapy. PLAN: 1. Acute PE, bilateral, provoked. The patient remains on Eliquis 5 mg p.o. b.i.d. Input from Dr. Castorena of IR noted and greatly appreciated. Input from Dr. Johnson of Pulmonary and Critical Care Management noted and greatly appreciated. 2. Cardiomyopathy s/p AICD. Continue Carvedilol 6.25 mg p.o.b.i.d., isosorbide dinitrate 60 mg p.o. daily. Input from Dr. Hong noted and greatly appreciated. 3. Hypertension. Blood pressure controlled. Continue with Carvedilol 6.25 mg p.o. bid and Norvasc 10 mg p.o. daily. 4. Ulcerative colitis. 5. Prophylaxis. GI prophylaxis is not indicated as the patient is eating. The patient remains on Eliquis for treatment of his underlying PE/DVT, thus prophylaxis is not indicated. CODE STATUS: Full code. Jeevan Nava MD MTDNasreen
[2017-10-05 04:16] VITALS: RESP 18
[2017-10-05] MEDS ORDERED: Pantoprazole 40 mg EC Tab PO SCH (06:00)
[2017-10-05 06:33] LABS: BASO # 0.01 K/mm3 (0.0-2.0); BASO % 0.2 % (0.0-3.0); EOS % 0.6 % (1.5-5.0); GRAN # 4.15 (1.4-6.5); GRAN % 79.2 % (50.0-68.0); HEMATOCRIT 32.1 % (42.0-52.0); LYMPH # 0.8 (1.2-3.4); LYMPH % 14.7 % (22.0-35.0); MEAN CORPUSCULAR HEMOGLOBIN 36.7 pg (25.0-35.0); MEAN CORPUSCULAR HGB CONC 34.3 g/dl (31.0-37.0); MEAN PLATELET VOLUME 9.5 fl (7.0-11.0); MONO # 0.3 (0.1-0.6); MONO % 5.3 % (1.0-6.0); RED CELL DISTRIBUTION WIDTH 15.9 % (11.5-14.5); WHITE BLOOD COUNT 5.2 10^3/ul (4.5-11.0)
[2017-10-05 06:37] VITALS: TEMP 98.8; O2SAT 92
[2017-10-05 06:52] LABS: INR 1.22 (0.93-1.08)
[2017-10-05 07:10] LABS: ALB/GLOB RATIO 0.8 (1.1-1.8); ALKALINE PHOSPHATASE 84 U/L (38-126); ALT/SGPT 37 U/L (7-56); AST/SGOT 34 U/L (17-59); BILIRUBIN,TOTAL 0.5 mg/dL (0.2-1.3); BLOOD UREA NITROGEN 7 mg/dL (7-21); CALCIUM 8.3 mg/dL (8.4-10.5); CARBON DIOXIDE 25 mmol/L (21-33); CHLORIDE 108 mmol/L (98-107); GFR AFRICAN-AMERICAN > 60; GLUCOSE,RANDOM 85 mg/dL (70-110); POTASSIUM 4.2 mmol/L (3.6-5.0); SODIUM 135 mmol/L (132-148); TOTAL PROTEIN 5.1 g/dL (5.8-8.3)
--- NOTE | 2017-10-05 08:08 | PN ---
DATE: 10/05/2017 PULMONARY NOTE SUBJECTIVE: The patient appears comfortable at rest. He is not short of breath. OBJECTIVE: VITAL SIGNS: Temperature is 98.8, pulse 75, respirations 18, blood pressure 129/83. Oxygen saturation on room air is 92-94%. HEENT: Normocephalic, atraumatic. NECK: No JVD. CARDIOVASCULAR: Positive S1, S2. No S3 gallop. LUNGS: Clear bilaterally. EXTREMITIES: The left lower extremity continues to decrease in size. There is much less edema, and much less tenderness to palpation - concerning the left calf. There is no clubbing or cyanosis. The right calf is nontender to palpation. GI: Abdomen is soft, nontender and nondistended. Bowel sounds are positive. SKIN: No acute rash. NEUROLOGIC: Exam limited at the present time. IMPRESSION: 1. Acute bilateral pulmonary emboli. 2. Left deep venous thrombosis. 3. Chronic obstructive pulmonary disease. 4. Mild anemia. 5. Status post automatic implantable cardioverter-defibrillator placement. PLAN: The patient appears very comfortable at rest. He is not short of breath. He does state to feeling much, much better overall. I did discuss the case with the night nurse at length. The night nurse stated that the patient had a very good night. On physical exam, the patient's lungs remain clear. Oxygen saturation on room air is 92-94%. He is continued on nebulizers - p.r.n. basis. The patient is also continued on his Eliquis. Inputs by Cardiology are noted. Input by Dr. Nava is also noted. Repeat a.m. labs are pending. Clinical status of the patient is significantly improved overall. I have called for a physical therapy evaluation. I will discuss the above with Dr. Nava. Christ Johnson MD MTDD
--- NOTE | 2017-10-05 08:23 | CP.PCM.PN ---
Subjective - Date & Time of Evaluation Date of Evaluation: 10/05/17 Time of Evaluation: 07:00 - Subjective Subjective: Stable on 3R. No CP or SOB. He felt "wobbly" walking yesterday. V/S noted. RSR PE: Lungs: clear Cor.: S1S2 Abd.: soft Ext.: mild edema Neuro: alert Labs noted: Pl LD=409,000, INR = 1.22, K+= 4.2 Echo noted: Mild LVD, Mild TR. No RVE or PH. Objective - Vital Signs/Intake and Output Vital Signs (last 24 hours): Temp Pulse Resp BP Pulse Ox 98.8 F 75 18 129/83 92 L 10/05/17 06:00 10/05/17 06:00 10/05/17 06:00 10/05/17 06:00 10/05/17 06:00 Intake and Output: 10/05/17 10/05/17 06:59 18:59 Intake Total 0 Balance 0 - Medications Medications: Current Medications Acetaminophen (Tylenol 325mg Tab) 650 mg PO Q4H PRN PRN Reason: Pain, Mild (1-3) Albuterol/Ipratropium (Duoneb 3 Mg/0.5 Mg (3 Ml) Ud) 3 ml IH Q2H PRN PRN Reason: Shortness of Breath Amlodipine Besylate (Norvasc) 10 mg PO DAILY [facility] Last Admin: 10/04/17 09:20 Dose: 10 mg Apixaban (Eliquis) 5 mg PO BID [facility] PRN Reason: Protocol Last Admin: 10/04/17 17:55 Dose: 5 mg Carvedilol (Coreg) 6.25 mg PO BID [facility] Last Admin: 10/04/17 17:56 Dose: 6.25 mg Gabapentin (Neurontin) 100 mg PO TID [facility] PRN Reason: Protocol Last Admin: 10/04/17 17:55 Dose: 100 mg Guaifenesin/Codeine Phosphate (Robitussin W/Codeine) 5 ml PO Q4H PRN PRN Reason: Cough and congestion Last Admin: 10/04/17 21:13 Dose: 5 ml Isosorbide Dinitrate (Isordil) 60 mg PO DAILY [facility] Last Admin: 10/04/17 09:19 Dose: 60 mg Lorazepam (Ativan) 2 mg IVP Q6H PRN PRN Reason: Anxiety Last Admin: 10/04/17 21:19 Dose: 2 mg Magnesium Oxide (Mag-Ox) 400 mg PO BID [facility] Last Admin: 10/04/17 17:55 Dose: 400 mg Nicotine (Nicoderm Cq) 1 patch TD DAILY [facility] Last Admin: 10/04/17 09:20 Dose: 1 patch Pantoprazole Sodium (Protonix Ec Tab) 40 mg PO 0600 [facility] Last Admin: 10/05/17 05:57 Dose: 40 mg - Labs Labs: 10/05/17 05:45 10/05/17 05:45 PT 13.3 SECONDS (9.4-12.5) H 10/05/17 05:45 INR 1.22 (0.93-1.08) H 10/05/17 05:45 APTT 81.8 Seconds (25.1-36.5) H 10/03/17 05:15 Assessment and Plan - Assessment and Plan (Free Text) Assessment: Edema/SOB DVT/Submassive bliat PE's Hypokalemia, resolved HBP H/O remote SCD/possible coronary vasospasm/ICD implant COPD/Smoker Chronic abdominal pain and diarrhea Thrombocytopenia, probably related to mercaptoputine tx. Daily ETOH Plan: OOB/PT As per pulm and int. radiology As per Drs. Nava Heme re-evaluation/Hypercoag w/u.
--- NOTE | 2017-10-05 08:23 | PN ---
SUBJECTIVE: The patient was seen and examined at bedside in the ICU. No acute events overnight. He remains afebrile and hemodynamically stable. This morning he complains of discomfort at his urinary Conrad site and has requested to have it removed, but otherwise offers no specific complaints. PHYSICAL EXAMINATION VITAL SIGNS: Temperature 97.7, pulse 74, blood pressure 127/66, respiratory rate 20, oxygen saturation 94% on 2 liters nasal cannula. GENERAL: In no apparent distress. HEENT: PERRLA, EOMI. No sclera icterus. No conjunctiva or pallor. NECK: No JVD. No bruits. LUNGS: Clear to auscultation. CARDIOVASCULAR: Regular rate and rhythm. Normal S1 and S2. AICD to the left anterior chest wall. ABDOMEN: Normal active bowel sounds, soft, and nontender and nondistended. EXTREMITIES: Right lower extremity with no edema. Left lower extremity with trace to 1+ edema to the knee. NEUROLOGIC: Awake, alert, and oriented x3. No focal motor deficits. LABORATORY DATA: WBC 3.8, hemoglobin 10.4, hematocrit 31, and platelets 96. Chemistry reviewed and unremarkable. ASSESSMENT: The patient is a 67 year old man with past medical history of hypertension, hyperlipidemia, cardiomyopathy s/p AICD and extensive smoking history who was recently diagnosed with left lower extremity DVT who presented with a 1 day history of dyspnea and was found to have bilateral pulmonary emboli who is now status post catheter directed thrombolysis PLAN: 1. Acute PE, bilateral. Input from Dr. Castorena of IR noted and greatly appreciated and the patient has demonstrated significant improvement. Continue Eliquis 5 mg p.o. twice a day. 2. Cardiomyopathy s/p AICD. Input from Dr. Hong noted and greatly appreciated. There has been no evidence of arrhythmias on telemetry monitoring. Continue Coreg 6.25 mg p.o. twice a day, isosorbide dinitrate 60 mg p.o. daily. 3. Hypertension blood pressure controlled. Continue current medications. 4. Ulcerative colitis. 5. Prophylaxis. GI prophylaxis not indicated as the patient is eating. The patient remains on Eliquis for underlying PE. CODE STATUS: Full code. Jeevan Nava MD [facility]
--- NOTE | 2017-10-05 08:34 | PN ---
DATE: 10/04/2017(630am--720am) SUBJECTIVE: The patient appears comfortable this morning. He is not short of breath at rest. PHYSICAL EXAMINATION: VITAL SIGNS: Temperature is 97.8, pulse on the monitor is 84, respiratory rate 18/20, blood pressure 143/101. Oxygen saturation on room air is 94%. HEENT: Normocephalic, atraumatic. No JVD. CARDIOVASCULAR: Positive S1, S2. No S3 gallop. LUNGS: Clear bilaterally. EXTREMITIES: The left lower extremity is decreased in size and edema. The left calf is much less tender to palpation. There is no cyanosis or clubbing. The right calf is nontender to palpation. GI: Abdomen is soft, nontender and nondistended. Bowel sounds are positive. SKIN: No acute rash. NEUROLOGIC: Exam limited at the present time. IMPRESSION: 1. Acute bilateral pulmonary emboli. 2. Left deep venous thrombosis. 3. Chronic obstructive pulmonary disease. 4. Mild anemia. 5. Status post automatic implantable cardioverter-defibrillator placement. PLAN: The patient appears comfortable this morning. He is not short of breath at rest. He has no chest pain. He does state to feeling much better overall. I did discuss the case with the night nurse at length. The night nurse stated that the patient had a very good night. The patient has been transitioned to Eliquis therapy. As noted in yesterday's assessment, the echocardiogram revealed normal right ventricular size and function. On physical exam, the patient's lungs remain clear. There is no significant alveolar-arterial gradient. Repeat a.m. labs are pending. Cardiology evaluation is ongoing. Input by Dr. Garcia is noted. Clinical status the patient is significantly improved - compared to the initial presentation. I will discuss the above with the entire ICU team in the next few moments. I will also discuss the above with Dr. Nava later this morning. Christ Johnson MD [facility] CENTERNasreen
[2017-10-05] MEDS: Magnesium Oxide 400 mg Tab UD PO SCH (09:13)
[2017-10-05 09:17] VITALS: BP 137/89; PULSE 81
[2017-10-05] MEDS ORDERED: Potassium Chloride 20 mEq ER Tab PO SCH (10:00)
--- NOTE | 2017-10-05 13:19 | PN ---
SUBJECTIVE: The patient was seen and examined at bedside on the remote telemetry morse. No acute events overnight. He remains afebrile and hemodynamically stable. This morning he feels okay, albeit slightly weak and otherwise offers no complaints. OBJECTIVE: VITAL SIGNS: Temperature 98.8, pulse 75, blood pressure 129/83, respiratory rate 18, and oxygen saturation 94% on room air. GENERAL: No apparent distress. HEENT: PERRL. EOMI. No scleral icterus. No conjunctival pallor. NECK: No JVD. No bruits. LUNGS: Clear to auscultation. CARDIOVASCULAR: Regular rate and rhythm. Normal S1 and S2. AICD to left anterior chest wall. ABDOMEN: Normoactive bowel sounds. Soft, nontender, and nondistended. EXTREMITIES: Left lower extremity with trace edema. NEUROLOGIC: Awake, alert, and oriented x3. No focal motor deficits. LABORATORY DATA: WBC 5.2, hemoglobin 11, hematocrit 32, platelets 118. Chemistry reviewed and unremarkable. ASSESSMENT: The patient is a 67 year old man with a past medical history of hypertension, hyperlipidemia, cardiomyopathy s/p AICD and an extensive smoking history who was recently diagnosed with a LLE DVT and subsequently presented with a 1 day history of dyspnea and was found to have bilateral PE and who was initially admitted to the ICU s/p catheter-directed thrombolysis PLAN: 1. Acute PE, bilateral, provoked. Continue with Eliquis 5 mg p.o. b.i.d. 2. Cardiomyopathy s/p AICD. Continue Carvedilol 6.25 mg p.o. b.i.d., Isosorbide dinitrate 60 mg p.o. daily. Input from Dr. Hong noted and greatly appreciated. 3. Hypertension. Blood pressure controlled. Continue with Coreg 6.25 mg p.o. b.i.d. and Norvasc 10 mg p.o. daily. 4. Ulcerative colitis. 5. Prophylaxis. GI prophylaxis is not indicated as the patient is eating. The patient remains on Eliquis for treatment of his underlying PE/DVT. CODE STATUS: Full code. Jeevan Nava MD [facility] # [id number] MTDNasreen
== END 2017-10-05 11:49 | disposition home or self-care (01) | DRG 167 ==
LOC: ED 07:15 → ERH 09:06 → CCU 10:58 → 3RSO 10-04 10:52
PROVIDERS: ADMIT Student in an Organized Health Care Education/Training Program; ATTEND Student in an Organized Health Care Education/Training Program
PROC: 06H03DZ Insertion of Intraluminal Device into Inferior Vena Cava, Percutaneous Approach (ICD-10-PCS; principal; 2017-10-01)
PROC: 3E06317 Introduction of Other Thrombolytic into Central Artery, Percutaneous Approach (ICD-10-PCS; 2017-10-01)
DX: I26.99 Other pulmonary embolism without acute cor pulmonale (principal); I42.9 Cardiomyopathy, unspecified; D69.6 Thrombocytopenia, unspecified; I11.0 Hypertensive heart disease with heart failure; I50.9 Heart failure, unspecified; J43.9 Emphysema, unspecified; K51.90 Ulcerative colitis, unspecified, without complications; I82.432 Acute embolism and thrombosis of left popliteal vein; D53.9 Nutritional anemia, unspecified; E78.5 Hyperlipidemia, unspecified; E87.6 Hypokalemia; F10.10 Alcohol abuse, uncomplicated; F17.210 Nicotine dependence, cigarettes, uncomplicated; G89.29 Other chronic pain; I25.2 Old myocardial infarction; Z95.810 Presence of automatic (implantable) cardiac defibrillator; R09.02 Hypoxemia; Z79.899 Other long term (current) drug therapy; Z86.010 Personal history of colon polyps; Z86.74 Personal history of sudden cardiac arrest; Z82.49 Family history of ischemic heart disease and other diseases of the circulatory system; Z82.3 Family history of stroke; Z88.6 Allergy status to analgesic agent; Z88.1 Allergy status to other antibiotic agents; Z88.0 Allergy status to penicillin; I51.7 Cardiomegaly; R40.2413 Glasgow coma scale score 13-15, at hospital admission

== ENCOUNTER → 2017-11-06 | Day surgery (SDC) | payer BC ==
[2017-11-02 10:24] VITALS: BMI 23.7
[~2017-11-06] MED LIST: HEPARIN SODIUM/NS 1,000 ML IV ONE; Iodixanol 320 MG/ML 100 ML BOTTLE IV ONE; Iodixanol 320 MG/ML 200 ML BOTTLE IV ONE; Lidocaine 2% Inj (20ml) ONE; Midazolam 2 MG/2 ML VIAL ONE; Oxycodone/Acetaminophen 5/325 mg Tab PO PRN; Sodium Chloride 0.45% 1,000 ML IV SCH
[2017-11-06 13:40] LABS: BASO # 0.02 K/mm3 (0.0-2.0); BASO % 0.4 % (0.0-3.0); BLOOD UREA NITROGEN 14 mg/dL (7-21); CALCIUM 9.6 mg/dL (8.4-10.5); CARBON DIOXIDE 23 mmol/L (21-33); CHLORIDE 104 mmol/L (98-107); EOS # 0.1 (0.0-0.7); EOS % 1.6 % (1.5-5.0); GFR AFRICAN-AMERICAN > 60; GLUCOSE,RANDOM 93 mg/dL (70-110); GRAN # 3.26 (1.4-6.5); GRAN % 66.6 % (50.0-68.0); HEMATOCRIT 33.9 % (42.0-52.0); LYMPH % 20.6 % (22.0-35.0); MEAN CELL VOLUME 101.8 fl (80.0-105.0); MEAN CORPUSCULAR HEMOGLOBIN 34.8 pg (25.0-35.0); MEAN CORPUSCULAR HGB CONC 34.2 g/dl (31.0-37.0); MEAN PLATELET VOLUME 8.8 fl (7.0-11.0); MONO # 0.5 (0.1-0.6); MONO % 10.8 % (1.0-6.0); RED CELL DISTRIBUTION WIDTH 15.2 % (11.5-14.5); SODIUM 136 mmol/L (132-148); WHITE BLOOD COUNT 4.9 10^3/ul (4.5-11.0)
[2017-11-06 13:52] LABS: INR 0.99 (0.93-1.08)
--- NOTE | 2017-11-06 16:27 | VASCULAR ---
PROCEDURE: IVC filter retrieval HISTORY: Pulmonary embolus with cor pulmonale. TPA infusion. Previous IVC filter placement. Needs filter removed. PHYSICIAN(S): David Castorena MD. TECHNIQUE: The relative risks and indications of the procedure were explained to the patient and consent obtained. The patient was placed supine on the arteriogram table the right neck and chest prepped and draped usual sterile fashion. Conscious sedation monitoring were provided throughout the procedure by a nurse Under direct ultrasound guidance, the right internal jugular vein was punctured with a micropuncture set. An 11 Polish filter was placed in the IVC above the filter. A 5 Polish pigtail catheter was placed in distal IVC and a PA DSA cavagram performed. No thrombus was appreciated. Initial attempts at snare in the proximal portion the filter were unsuccessful due to the angulation. A 6 Polish JR 3 guide was placed at the superior portion of the filter. The mm snare engaged the hook at the top of the filter. The 2 coaxial sheaths were advanced over the filter in the filter removed. The patient tolerated the procedure well. FINDINGS: Pre-removal IVC gram shows no evidence of thrombus. The retrievable filter is slightly tilted. The post -retrieval cavagram is normal. No obvious trauma is appreciated. IMPRESSION: 1. Removal of patient's IVC filter
[2017-11-06 17:08] VITALS: BP 131/93; PULSE 89; RESP 20; TEMP 97.7; O2SAT 94
== END | disposition home or self-care (01) ==
LOC: SDSVAS 13:07
PROVIDERS: ATTEND Radiology Vascular & Interventional Radiology
DX: Z45.2 Encounter for adjustment and management of vascular access device (principal); Z86.711 Personal history of pulmonary embolism; I27.81 Cor pulmonale (chronic)